=== PATIENT | male | born 1940 | race Caucasian/White ===

== ENCOUNTER → 2017-10-14 09:24 | Outpatient (CLI) | payer MEDICARE, SELFPAY ==
[2017-10-14 10:55] LABS: ALB/GLOB Ratio 0.8 RATIO (0.9-2.4); AST(SGOT) 28 U/L (15-37); Alanine Aminotransfer ALT/SGPT 25 U/L (16-61); Albumin, Serum 3.3 g/dL (3.2-5.0); Alkaline Phosphatase 102 U/L (45-117); Anion Gap 8 (5-15); BUN 17 mg/dL (7-18); BUN/Creat Ratio 15.6 RATIO (10-20); Calcium,Total 8.6 mg/dL (8.5-10.1); Chloride 104 mmol/L (98-107); Cholesterol 156 mg/dL (200); Creatinine, Serum 1.09 mg/dL (0.70-1.30); EST Glomerular Filtration Rate 70 mL/min (>60); Est Glom Filt Rate - Afr Amer 85 mL/min (>60); Globulin 4.2 g/dL (2.2-4.2); Glucose 86 mg/dL (74-106); High Density Lipoprotein 39 mg/dL; PSA,Total - Annual Screen < 0.01 ng/mL (0.00-4.00); Potassium 4.2 mmol/L (3.5-5.1); Protein, Total 7.5 g/dL (6.4-8.2); Sodium Level 138 mmol/L (136-145); Triglycerides 93 mg/dL; Very Low Density Lipoprotein 19 mg/dL (5-40)
== END ==
PROVIDERS: Family Provider Family Medicine; PCP Family Medicine; Visit Provider Family Medicine
DX: Z00.00 Encounter for general adult medical examination without abnormal findings (principal); Z85.46 Personal history of malignant neoplasm of prostate
CPT/HCPCS: 36415; 80053; 80061; 84153; G0103

== ENCOUNTER → 2017-10-22 07:12 | Outpatient (CLI) | payer MEDICARE, SELFPAY ==
--- NOTE | 2017-10-22 07:14 | CT_ITS ---
STUDY: CT MAXILLOFACIAL SINUSES REASON FOR EXAM: Male, 76 years old. Chronic sinusitis. RADIATION DOSAGE (If Supplied By Facility): CTDIvol = ( 33.06 ) mGy, DLP = ( 792.53 ) mGycm TECHNIQUE: The patient was scanned in a multi detector CT scanner. High resolution axial imaging was performed without the administration of intravenous contrast material. Sagittal and coronal images were reconstructed. Individualized dose optimization techniques were used for this CT. COMPARISON: None. FINDINGS: FRONTAL SINUSES: Minimal mucosal thickening of the right frontal sinus. ETHMOIDAL SINUSES: Partial opacification of the ethmoid sinuses bilaterally. MAXILLARY SINUSES: There is opacification of the right maxillary sinus. Mucosal thickening of the left maxillary sinus. SPHENOIDAL SINUSES: Partial opacification of the sphenoid sinuses. There is compromise of the right ostium medial cartilage due to mucosal hypertrophy at that site. There is also evidence of soft tissue density in the right nasal fossa. Normal bilateral middle turbinates. There is hypertrophy of the left inferior nasal turbinate. Normal midline nasal septum. There is patency of the bilateral nasal airways. The visualized osseous structures are normal. The visualized bilateral orbital contents are normal. CT/Sinus/Facial Bone IMPRESSION: Sinusitis as described. Electronically Signed: Don Romero MD at 14:47 EST Tel [phone], Service support ,
== END ==
PROVIDERS: Family Provider Family Medicine; PCP Family Medicine; Visit Provider Otolaryngology
DX: J32.9 Chronic sinusitis, unspecified (principal)
CPT/HCPCS: 70486

== ENCOUNTER 2017-11-09 05:44 | Day surgery (SDC) | payer MEDICARE, SELFPAY ==
[2017-11-09 06:09] VITALS: BP 119/72; PULSE 66; RESP 16; O2SAT 100
--- NOTE | 2017-11-09 06:19 | PCM.HP.STD ---
Problem List (1) Personal history of colonic polyps Status: Acute History of Present Illness Date of Admission: 11/09/17 The patient is a 76 year old M personal history of colon polyps. His most recent colonoscopy was 9 years ago. He denies any significant chronic health problems other than hypertension. He denies bright red blood per rectum or melena. No abdominal pain. No unexpected weight loss. He denies any previous history of deep venous thrombosis. He states that there is no family history of colon cancer. He presents via our open access program. Past Medical History Allergies No Known Allergies Allergy (Verified 11/05/17 16:07) Home Medications: Ambulatory Orders Medication Instructions Recorded Lisinopril [Zestril] 10 mg PO DAILY 11/05/17 Omeprazole [Prilosec] 20 mg PO PRN PRN 11/05/17 Smoking Status: Never smoker Review of Systems Constitutional: Denies: Anorexia Eyes: Denies: Blurred vision HEENT: Denies: Difficulty Hearing Cardiovascular: Denies: Chest Pain Respiratory: Denies: Cough Gastrointestinal: Denies: Abdominal Pain Genitourinary: Denies: Dysuria Skin: Denies: Dryness Neurological: Denies: Balance problems Psychiatric: Denies: Anxiety Endocrine: Denies: Change in Body Habitus VTE Information - Inpt Only VTE Present on Admission: No Patient Problems: Active and Suspected Problems Personal history of colonic polyps (Acute) - Physical Exam General: Alert, Oriented x3, Cooperative, No apparent distress HEENT: Atraumatic Oral: Moist Mucosa Neck: Supple Lungs: Clear to auscultation Cardiovascular: Regular rate, Regular Rhythm Abdomen: Bowel Sounds Present Extremities: No clubbing Musculoskeletal: No Tenderness to Palpation of Joints or Extremities Lymphatic: No Cervical, Supraclavicular, or Inguinal Adenopathy Neurological: Cranial nerves II-XII grossly intact Psych/Mental Status: Normal Affect Vital Signs Pulse Resp BP Pulse Ox 66 16 119/72 100 11/09/17 06:09 11/09/17 06:09 11/09/17 06:09 11/09/17 06:09 Oxygen Delivery Method Room Air Assessment/Plan Active and Suspected Problems Personal history of colonic polyps (Acute) Patient has a previous history of a colon polyp 9 years ago on colonoscopy. That is his only previous colonoscopy. He currently does not have any acute symptoms. I proposed for him a colonoscopy with possible biopsy or polypectomy is indicated. I have discussed the technique, benefits, risks, alternatives. He has had an opportunity to ask and have questions answered. We will proceed at his discretion. Robel Vega M.D., F.A.C.S.
--- NOTE | 2017-11-09 06:45 | POL_PTH ---
PATIENT: NOE MIRELES LOC: EN U#:[id number] AGE/SX: 76/M ROOM: RE11/09/[address]: Dr. Robel Vega MD : 1940 BED: DIS: 11/09/2017 SPEC #: [id number] RECD: 11/09/17 13:09 STATUS: EMANUEL GIRISH #: [id number] NATALEE: 11/09/17 06:[address]: Robel Vega DEPT: SURGICAL PATHOLOGY RECD BY: Irwin Sousa ENTERED: 11/09/17 14:26 SP TYPE: Polyp OTHR DR: Dr. Mike Sevilla, DO Tissues: Rectum, NOS Procedures: Surgery Specimen Level IV HEADER OPERATION: Colonoscopy with biopsy PRE-OP DIAGNOSIS: Screening TISSUE SUBMITTED: Rectal polyp biopsy MICROSCOPIC DIAGNOSIS Rectal polyp, biopsy: Hyperplastic polyp. SJ:preston 11/10/17 MICROSCOPIC DESCRIPTION Slides are reviewed. GROSS DESCRIPTION Received in fixative is one container labeled with the patient's name and designated rectal polyp biopsy. The specimen consists of one irregular fragment of light locke soft tissue that measures 0.3 x 0.3 x 0.1 cm. The specimen is totally submitted in one cassette. / SJ:preston 11/09/17 TC:1 CPT: 43354
--- NOTE | 2017-11-09 06:53 | PCM.OPRPT ---
Problem List (1) Personal history of colonic polyps Status: Acute Report of Operation Date of Procedure: 11/09/17 Pre-Operative Diagnosis: Personal history of colon polyps Post-Operative Diagnosis: Diminutive sessile polyp in the rectum. Pancolonic diverticulosis Surgery/Procedure Performed:: Colonoscopy with cold forcep rectal polypectomy Description of Surgical Findings:: Timeout and informed consent was obtained. 76-year-old gentleman was taken to the endoscopy suite and placed in a left lateral decubitus position throughout the procedure he received a total of 75 mg Demerol and 3 mg of Versed is intravenous sedation. Digital rectal exam demonstrated some mild hemorrhoidal changes 2+ smooth prostate no masses flexible colonoscope inserted the rectum advanced was somewhat tortuous sigmoid colon extensively involved with diverticulosis the scope was then readily advanced to the transverse colon with some transabdominal pressure was advanced to the cecum. Bowel prep was very good. The scope was carefully withdrawn from the cecum ascending colon transverse colon and descending colon. Throughout the colon scattered diverticulosis was identified but there was extensive diverticulosis of the descending and sigmoid colon. In the rectum at about 8 cm there was a small 6 mm diameter sessile polyp. Photographs obtained and a cold forcep was used to sample and eradicate this area. The scope was retroflexed and hemorrhoidal no active bleeding. Excess fluid and air was aspirated free the procedure was completed with the patient tolerating it well. Impression Sessile benign-appearing polyp of the rectum. Extensive descending and sigmoid diverticulosis Previous colonoscopy was 9 years ago. Pending pathology next colonoscopy may be in 5 years. Cc: Dr. Dr. Sevilla Medications were given at 0636. Scope inserted 0638. Cecum reached at 0642.57. Procedure completed at 0651.01 Robel Vega M.D., F.A.C.S. Type of Anesthesia:: IV Sedation
[2017-11-09 06:58] VITALS: BP 103/67; BP 119/72; PULSE 57; RESP 18; TEMP 35.7; O2SAT 95
[2017-11-09 07:00] VITALS: BP 108/68; BP 119/72; PULSE 59; RESP 18; O2SAT 93
[2017-11-09 07:05] VITALS: BP 119/72; BP 93/62; PULSE 50; RESP 18; O2SAT 93
[2017-11-09 07:10] VITALS: BP 111/64; BP 119/72; PULSE 50; RESP 18; TEMP 35.9; O2SAT 93
[2017-11-09 07:34] VITALS: BP 119/72
== END 2017-11-09 08:05 | disposition home or self-care (01) ==
LOC: EN 05:44 → AC 05:45
PROVIDERS: Family Provider Family Medicine; PCP Family Medicine; Visit Provider Surgery
PROC: 0DJD8ZZ Inspection of Lower Intestinal Tract, Via Natural or Artificial Opening Endoscopic (ICD-10-PCS; CPT 45378; principal; 2017-11-09 06:25)
DX: K62.1 Rectal polyp (principal); K57.30 Diverticulosis of large intestine without perforation or abscess without bleeding; K64.9 Unspecified hemorrhoids; Z86.010 Personal history of colon polyps; I10 Essential (primary) hypertension; Z79.899 Other long term (current) drug therapy
CPT/HCPCS: 45380; 88305; J7120

== ENCOUNTER → 2018-02-15 12:12 | Outpatient (CLI) | payer MEDICARE, SELFPAY ==
--- NOTE | 2018-02-15 12:16 | RAD_ITS ---
STUDY: X-RAY - LEFT SHOULDER REASON FOR EXAM: Male, 77 years old. Pain TECHNIQUE: 4 view(s) of the shoulder. COMPARISON: None. FINDINGS: Normal glenohumeral articulation. There is degenerative arthrosis of the acromioclavicular joint without inferior osseous spur formation. Normal acromion. Normal humeral head and visualized proximal humerus. The soft tissue structures are unremarkable. Normal visualized pulmonary apex. RAD/Shoulder min 2 Views IMPRESSION: There is mild acromioclavicular joint degenerative arthrosis. Electronically Signed: Pushpa Lilly MD at 13:24 EDT , Service support ,
== END ==
PROVIDERS: Family Provider Family Medicine; PCP Family Medicine; Visit Provider Family Medicine
DX: M25.512 Pain in left shoulder (principal)
CPT/HCPCS: 73030

== ENCOUNTER 2018-09-09 12:51 | Observation (INO) | payer MEDICARE, SELFPAY ==
[2018-09-09] VITALS (14 sets, daily range): BP systolic 126–153; BP diastolic 75–92; PULSE 45–76; RESP 12–20; TEMP 36.4–36.8; O2SAT 95–99; BMI 25.8; BMI 31.6; BMI 28.5
--- NOTE | 2018-09-09 13:03 | EKG12_ITS ---
Test Reason : NEURO Blood Pressure : / mmHG Vent. Rate : 063 BPM Atrial Rate : 063 BPM P-R Int : 200 ms QRS Dur : 082 ms QT Int : 396 ms P-R-T Axes : -02 -01 005 degrees QTc Int : 405 ms Sinus rhythm with Premature atrial complexes with Aberrant conduction Minimal voltage criteria for LVH, may be normal variant Inferior infarct , age undetermined Abnormal ECG Confirmed by ROLF GIORDANO, KINGSLEY ([id number]), film editor AUTUMN GONSALES ([id number]) on 09/13/2018 5:02:39 PM Referred By: Magdy Fang Confirmed By:KINGSLEY BANSAL MD
--- NOTE | 2018-09-09 13:03 | CT_ITS ---
STUDY: CT BRAIN WITHOUT CONTRAST REASON FOR EXAM: Male, 77 years old. Left-sided facial droop RADIATION DOSAGE (If Supplied By Facility): CTDIvol = ( 44.99 ) mGy, DLP = ( 846.73 ) mGycm TECHNIQUE: Transaxial CT imaging of the brain was performed without administration of intravenous contrast material. Individualized dose optimization techniques were used for this CT. COMPARISON: None. FINDINGS: Normal soft tissue structures. Normal calvarium. There is mild cerebral atrophy with widening of the extra-axial spaces and ventricular dilatation. There are areas of decreased attenuation within the white matter tracts of the supratentorial brain, consistent with microvascular disease changes. Normal basal ganglia and thalami. Normal brainstem. There is mild cerebellar atrophy. There is no intracranial hemorrhage. There are no findings of an acute ischemic infarction. There is mucoperiosteal inflammatory disease of the paranasal sinuses consistent with mild chronic sinusitis. CT/Brain/Head without Contrast IMPRESSION: Chronic involutional changes of the brain. Electronically Signed: Sylvester Rey DO at 14:19 EST Tel , Service support ,
[2018-09-09 13:28] LABS: Absolute Lymphocyte Count 1.58 X10^3/ul (0.83-4.51); Basophil# 0.03 X10^3/uL; Basophil% 0.4 % (0-1); Eosinophils% 4.4 % (0-5); Hematocrit 43.4 % (40-54); Hemoglobin 14.5 g/dl (13.0-16.5); Lymphocyte # 1.58 X10^3/ul (4.0); Mean Corp Hgb Conc 33.4 g/gl (32-36); Mean Corpuscular Hgb 29.1 pg (27.0-32.0); Mean Platelet Vol. 10.7 fl (6.2-12.0); Monocyte# 0.94 X10^3/uL; Monocyte% 13.7 % (0-10); Neutrophil % 58.4 % (47-70); Platelet Count 187 K/mm3 (150-450); RBC Distribution Width CV 14.3 % (11.6-14.6); RBC Distribution Width SD 45.5 fl (35.1-43.9); Red Blood Count 4.99 M/mm3 (4.6-6.2); White Blood Count 6.9 K/mm3 (4.4-11.0)
[2018-09-09 13:32] LABS: POSITIVE COUNT NO; POSITIVE DIFFERENTIAL NO; POSITIVE MORPHOLOGY NO
[2018-09-09 13:33] LABS: International Normalized Ratio 1.1; Prothrombin Time (Protime)PT. 13.7 SECONDS (11.7-14.9)
[2018-09-09 13:34] LABS: Partial Thromboplast Time 29.3 Seconds (24.1-36.2)
[2018-09-09 13:36] LABS: Anion Gap 7 (5-15); BUN 22 mg/dL (7-18); BUN/Creat Ratio 18.5 RATIO (10-20); Chloride 108 mmol/L (98-107); Creatinine, Serum 1.19 mg/dL (0.70-1.30); EST Glomerular Filtration Rate 63 mL/min (>60); Est Glom Filt Rate - Afr Amer 77 mL/min (>60); Estimated Creatinine Clearance 53.64 ml/min; Glucose 94 mg/dL (74-106); Potassium 4.8 mmol/L (3.5-5.1); Sodium Level 142 mmol/L (136-145)
--- NOTE | 2018-09-09 15:41 | ED.VISSUMM ---
- ER Visit Summary Date of Service: 09/09/18 Chief Complaint: Facial droop History of Present Illness: The patient is a 77 M who was at his PCPs office for routine visit and was told that he has facial droop and he was sent to the emergency department. No weakness. No sensory deficits no speech or vision deficits. Physical Examination: Not appear in acute distress. Moist mucous membranes, no obvious facial deformity No C-spine tenderness supple neck. Regular rate and rhythm without any obvious murmurs Clear lungs bilaterally speaking in full sentences without any obvious respiratory distress Abdomen soft and nontender no guarding or rebound Moves all extremities without any difficulty or pain. Skin does not show any obvious rashes or lesions, no trauma. Alert oriented ?3. He has very subtle flattening of the left nasal labial fold, I do not see any forehead involvement. NIG stroke scale is 1 because of this otherwise no other focal deficit. Emergency Department Course and Treatment: She has unremarkable workup, I discussed the case with neurology who recommended admission to the hospital. I will admit for observation under telemetry for 24 hours. Patient is stable. Impression: [] TIA This note was generated with [employer] dictation software. It may contain incorrect words, spelling, and punctuation that were not noted in review of the chart prior to signing ED Disposition - Plan for ED Patient: Chief Complaint: Neuro S/Sx Referrals: Mike Sevilla DO [Primary Care Provider] -
[2018-09-09 15:45] LABS: Bedside Glucose 85 mg/dL (70-110)
--- NOTE | 2018-09-09 17:09 | PCM.HP.STD ---
Problem List (1) CVA (cerebral vascular accident) Status: Acute Qualifiers: CVA mechanism: unspecified Qualified Code(s): I63.9 - Cerebral infarction, unspecified History of Present Illness Date of Admission: 09/09/18 Chief Complaint: left facial droop The patient is a 77 year old M presents with left facial droop and slurred speech. Symptoms may began days ago where but until he followed up with his doctor and noted that he was slurring his words and had a left facial droop. Patient was sent to the emergency room. In the emergency room patient was noted to have a left facial droop as well as some slurred speech but otherwise his neurologic exam was unremarkable. Patient underwent initial head CT that was negative. Patient otherwise feels fine, he denies any is, no expressive nor receptive aphasia. He has never had a stroke before. [] Past Medical History Past Medical History (Chronic Problems): Chronic Problems (Last Reviewed 09/09/18 @ 11:10 by Estrellita Rojas) Prostate cancer (Chronic) Vision problems (Chronic) GERD (gastroesophageal reflux disease) (Chronic) High blood pressure (Chronic) Cataracts, bilateral (Chronic) Arthritis (Chronic) Seasonal allergies (Chronic) Medical History: Medical History (Last Reviewed 09/09/18 @ 17:10 by Magdy Fang DO) Prostate cancer (Chronic) C61 Vision problems (Chronic) H54.7 GERD (gastroesophageal reflux disease) (Chronic) K21.9 High blood pressure (Chronic) I10 Cataracts, bilateral (Chronic) H26.9 Arthritis (Chronic) M19.90 Seasonal allergies (Chronic) J30.2 Allergies latex Allergy (Intermediate, Verified 09/09/18 12:58) Bumps Home Medications: Ambulatory Orders Medication Instructions Recorded Omeprazole [Prilosec] 20 mg PO DAILY PRN PRN 11/05/17 Lisinopril [Zestril] 10 mg PO DAILY 09/09/18 Surgical History: Surgical History (Last Reviewed 09/09/18 @ 17:10 by Magdy Fang DO) History of cataract extraction Z98.49 10/15, 04/15, 10/17, 11/14 History of hand surgery Z98.890 History of prostatectomy Z90.79 6/ Smoking Status: Never smoker Tobacco Use: Non-smoker Alcohol: None Drugs: None - *Family History Maternal Family History: Family History (Last Reviewed 09/09/18 @ 17:10 by Magdy Fang DO) Brother Arthritis Brother Arthritis Heart disease CVA (cerebral vascular accident) Mother Myocardial infarction Heart disease CVA (cerebral vascular accident) Father Kidney disease Review of Systems Constitutional: Denies: Anorexia, Chills, Fever Eyes: Denies: Blurred vision, Double vision HEENT: Denies: Head Aches, Sinus Congestion, Sinus Drainage Cardiovascular: Denies: Chest Pain, Palpitations Respiratory: Denies: Cough, Shortness of breath at rest, Sputum production Gastrointestinal: Denies: Abdominal Pain, Nausea, Vomiting Genitourinary: Denies: Dysuria Musculoskeletal: Denies: Joint Pain, Joint Tenderness Skin: Denies: Dryness, Jaundice Neurological: Denies: Numbness, Tingling, Focal weakness Psychiatric: Denies: Anxiety, Depression Hematologic/ Lymphatic: Denies: Easy Bruising, Easy Bleeding, Hx of blood clot Comment: A 10 point review of systems were negative except as mentioned in the history of present illness and the other review of systems. VTE Information - Inpt Only VTE Present on Admission: No VTE Pharm Prophylaxis ordered?: Yes Patient Problems: Active and Suspected Problems (Last Reviewed 09/09/18 @ 11:10 by Estrellita Rojas) CVA (cerebral vascular accident) (Acute) - Physical Exam General: Alert, Cooperative, No apparent distress, Well developed, Well nourished HEENT: Atraumatic, PERRLA, EOMI, Normocephalic, - - Left facial droop Oral: Moist Mucosa, No Gingival or Mucosal Lesions/ Ulcerations Neck: No Nodes, Thyroid Normal Size and Texture Lungs: Clear to auscultation, Normal air movement, No rhonchi, No wheeze Cardiovascular: Regular rate, Regular Rhythm, Normal S1, Normal S2, No murmurs Abdomen: Bowel Sounds Present, Soft, Non Tender, Non-Distended, No Hepato-splenomegaly Extremities: No clubbing, No edema, No Calf Tenderness Skin: No rashes, No breakdown Musculoskeletal: No Tenderness to Palpation of Joints or Extremities, No Muscle Wasting Neurological: Cranial nerves II-XII grossly intact, Neuro grossly intact, Motor Exam 5/5 strength throughout, Facial Droop - left, Sensory exam intact to light touch and pain Psych/Mental Status: Normal Affect, Appropriate Vital Signs Temp Pulse Resp BP Pulse Ox 36.4 C L 53 L 16 143/90 H 98 09/09/18 12:52 09/09/18 16:30 09/09/18 16:30 09/09/18 16:30 09/09/18 16:30 Oxygen Flow Rate (L/min) 2 Oxygen Delivery Method Nasal Cannula Weight: 97 kg Body Mass Index (BMI) 31.6 Finger Stick Blood Glucose 85 Laboratory Tests Past 24 Hrs 09/09/18 09/09/18 09/09/18 13:15 13:15 13:15 WBC 6.9 RBC 4.99 Hgb 14.5 Hct 43.4 MCV 87.0 MCH 29.1 MCHC 33.4 RDW 14.3 RDW Differential 45.5 H Plt Count 187 MPV 10.7 Immature Gran % (Auto) 0.100 Neut % (Auto) 58.4 Lymph % (Auto) 23.0 Spencer % (Auto) 13.7 H Eos % (Auto) 4.4 Baso % (Auto) 0.4 Absolute Neuts (auto) 4.0 Absolute Lymphs (auto) 1.58 Total Counted Not Reportable PT 13.7 INR 1.1 APTT 29.3 Sodium 142 Potassium 4.8 Chloride 108 H Carbon Dioxide 27.0 Anion Gap 7 BUN 22 H Creatinine 1.19 Estim Creat Clear Calc 53.64 Est GFR (MDRD) Af Amer 77 Est GFR (MDRD) Non-Af 63 BUN/Creatinine Ratio 18.5 Glucose 94 Calcium 9.0 Troponin I < 0.015 POC Glucose 09/09/18 13:11 POC Glucose 85 Clinical Impression(s) from Imaging Studies Brain CT 09/09/18 13:03 IMPRESSION: Chronic involutional changes of the brain. Electronically Signed: Sylvester Rey DO at 14:19 EST Tel , Service support , Assessment/Plan All Active Problems (Last Reviewed 09/09/18 @ 11:10 by Estrellita Rojas) CVA (cerebral vascular accident) (Acute) Personal history of colonic polyps (Acute) 1. Acute stroke may be subacute as time of onset is unknown at this time Patient has no other deficits other than some slurred speech and a left facial droop. There is no forehead involvement. Ago remainder of a stroke workup, including MRI of the brain, MRA of the head and neck and echocardiogram Start aspirin Consult neurology, physical therapy, speech therapy and occupational therapy 2. DVT prophylaxis with Lovenox Code Visit OBSV E&M: 41204 Initial observation care L3
--- NOTE | 2018-09-09 17:11 | ECHOD_ITS ---
Reason For Study: TIA/CVA Procedure This was a 2D Doppler, Color Flow transthoracic echocardiogram. The exam was of adequate technical quality. Exam performed portable in patient room. Left Ventricle Normal LV size. Left ventricular systolic function is normal. The estimated ejection fraction is 60 %. No evidence for diastolic dysfunction. No regional wall motion abnormalities noted. Right Ventricle Normal RV size. Normal systolic function. Atria Normal left atrium. Normal right atrium. Very faintly positive agitated saline contrast study for a right to left interatrial shunt c/w a small PFO vs. ASD. Mitral Valve There is no mitral annular calcification. Mild mitral valve prolapse. Mild-Moderate (1-2+) mitral valve insufficiency. Tricuspid Valve Normal tricuspid valve. Trivial tricuspid valve insufficiency. Right ventricular systolic pressure estimated to be 30 mmHg. Aortic Valve Trisinus/trileaflet aortic valve. Normal aortic valve. Trivial eccentric aortic valve insufficiency. Pulmonic Valve The pulmonic valve is not well visualized. Trivial pulmonic valve insufficiency. Great Vessels Normal sized aortic root. Pericardium/Pleural No pericardial effusion. Medication Performed a rapid injection of agitated mix of 9 cc saline and 1cc air to assess for atrial septal defect. MMode/2D Measurements & Calculations LVIDd: 5.2 cm IVSd: 0.80 cm Ao root diam: 3.2 cm LVIDs: 2.9 cm LVPWd: 0.97 cm RVDd: 4.3 cm FS: 44.4 % LAV(MOD-bp): 46.2 ml LVAd ap4: 28.8 cm2 SV(MOD-sp4): 56.4 ml LAV(MOD-bp) Indexed: 21.8 ml/m2 EDV(MOD-sp4): 85.0 ml LAV(MOD-sp2): 43.0 ml EDV(sp4-el): 92.0 ml LAV(MOD-sp4): 45.3 ml LVAs ap4: 15.4 cm2 ESV(MOD-sp4): 28.6 ml ESV(sp4-el): 30.3 ml EF(MOD-sp4): 66.3 % EF(sp4-el): 67.0 % SV(sp4-el): 61.7 ml LA A4 area: 18.7 cm2 LA dimension(2D): 4.0 cm RA A4 area: 10.0 cm2 Doppler Measurements & Calculations MV E max phillip: 71.0 cm/sec Lat Peak E' Phillip: 10.5 cm/sec Med Peak E' Phlilip: 5.3 cm/sec MV A max phillip: 88.7 cm/sec E/E' lat: 6.8 E/E' med: 13.4 MV E/A: 0.80 Ao V2 max: 135.1 cm/sec LV V1 max: 103.8 cm/sec PA V2 max: 98.2 cm/sec Ao max P.3 mmHg LV V1 max P.3 mmHg Ao V2 mean: 101.1 cm/sec Ao mean P.4 mmHg Ao V2 VTI: 33.0 cm PI end-d phillip: 90.5 cm/sec TR max phillip: 260.5 cm/sec TR max P.1 mmHg Interpretation Summary Left ventricular systolic function is normal. The estimated ejection fraction is 60 %. Mild mitral valve prolapse. Mild-Moderate (1-2+) mitral valve insufficiency. Trivial tricuspid valve insufficiency. Trivial eccentric aortic valve insufficiency. Trivial pulmonic valve insufficiency. Right ventricular systolic pressure estimated to be 30 mmHg. No evidence for diastolic dysfunction. Very faintly positive agitated saline contrast study for a right to left interatrial shunt c/w a small PFO vs. ASD. Ordering Physician: Magdy Fang Referring Physician: Mike Sevilla Performed By: Conchita Givens, ADELINE, RVT
--- NOTE | 2018-09-09 17:11 | MRI_ITS ---
STUDY: MRI BRAIN WITHOUT CONTRAST REASON FOR EXAM: Male, 77 years old. Left facial droop. TECHNIQUE: Standardized multiplanar fat and water weighted pulse sequences were obtained. COMPARISON: None. FINDINGS: Normal size of the ventricles and extra-axial spaces for the patient's age. There are multiple white matter hyperintensities, distributed throughout the deep white matter tracts of the cerebral hemispheres, consistent with moderate chronic white matter ischemic changes. Normal bilateral basal ganglia. Normal thalami. There is no extra-axial fluid accumulation. Normal flow voids within the major intracranial circulation suggesting patency by spin echo criteria. Normal sella turcica, pituitary gland, infundibular stalk, optic chiasm and hypothalamus. Normal tectal plate and pineal gland. Normal midbrain, delmi and medulla. Normal cerebellum. Normal basal cisterns. Normal bilateral temporal bones. Normal bilateral internal auditory canals. No demonstrated orbital abnormality, within the constraints of a routine brain study. Normal visualized paranasal sinuses. Normal calvarium and skull base. Normal visualized soft tissue structures. Normal visualized upper cervical spine. MRI/Brain without Contrast IMPRESSION: Involutional changes of the brain, as described above. Electronically Signed: Jessica Mcdonald MD at 20:28 EST Tel , Service support ,
--- NOTE | 2018-09-09 17:11 | MRI_ITS ---
STUDY: MRA NECK WITH AND WITHOUT CONTRAST REASON FOR EXAM: Male, 77 years old. LEFT facial droop and slurred speech, symptoms noticed this morning. History of Prostate CA TECHNIQUE: 3-D scwf-vy-[id number] (TOF) imaging was performed in an 1.5 T MRI scanner. 9 ml of Gadavist was administered for the contrast enhanced images. COMPARISON: None. FINDINGS: RIGHT CAROTID ARTERIES: There is atherosclerotic tortuous elongation of the right common carotid artery. There is mild atherosclerotic plaque formation with minimal narrowing of the right carotid bulb. Normal origin of the right internal carotid (ICA) artery without a hemodynamically significant stenosis. Normal visualized cervical portion of the right internal carotid artery. Normal origin of the right external carotid artery (ECA). LEFT CAROTID ARTERIES: There is atherosclerotic tortuous elongation of the left common carotid artery. There is mild atherosclerotic plaque formation with minimal narrowing of the left carotid bulb. Normal origin of the left internal carotid (ICA) artery without a hemodynamically significant stenosis. Normal visualized cervical portion of the left internal carotid artery. Normal origin of the left external carotid artery (ECA). VERTEBRAL ARTERIES: There is a dominant left vertebral artery. 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 Electronically Signed: Jessica Mcdonald MD at 0:04 EST Tel , Service support ,
--- NOTE | 2018-09-09 17:11 | MRI_ITS ---
STUDY: MRA OF THE HEAD WITHOUT CONTRAST REASON FOR EXAM: Male, 77 years old. Left facial droop TECHNIQUE: 3-D olda-wf-pymoxk (TOF) imaging was performed with MIPs. The study was performed unenhanced. COMPARISON: None. FINDINGS: Normal bilateral petrous carotid arteries. Normal right cavernous carotid artery with a normal supraclinoid bifurcation. Normal left cavernous carotid artery with a normal supraclinoid bifurcation. Normal right A1 segments of the anterior cerebral artery. Normal left A1 segments of the anterior cerebral artery. Normal intact anterior communicating artery (ACOM). Normal bilateral A2 segments of the anterior cerebral arteries. 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 Normal right M2 segments of the middle cerebral arteries, with a normal M1 bifurcation. Normal left M1 and M2 segments of the middle cerebral arteries, with a normal M1 bifurcation. Normal right posterior communicating artery (PCOM). There is non-visualization of the left posterior communicating artery (PCOM). Normal bilateral vertebral arteries. Normal basilar artery with a normal basilar bifurcation. The visualized bilateral superior cerebellar (SCA) arteries are normal. Normal bilateral P1, P2 and visualized P3 segments of the posterior cerebral arteries. There is no demonstrated aneurysm of the [place]. There is no major vessel occlusion or hemodynamically significant stenosis. There is no demonstrated abnormality of the visualized brain. 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 Electronically Signed: Jessica Mcdonald MD at 23:59 EST Tel , Service support ,
[2018-09-09] MEDS: Aspirin 325 MG Tablet PO (20:58)
--- NOTE | 2018-09-09 20:58 | NURSING ---
Patient was educated on Lovenox and still refused medication.
[2018-09-10] VITALS (8 sets, daily range): BP systolic 118–156; BP diastolic 74–82; PULSE 52–80; RESP 16–17; TEMP 36.4–36.8; O2SAT 94–98; BMI 28.5
[2018-09-10 06:58] LABS: Cholesterol 167 mg/dL (200); High Density Lipoprotein 41 mg/dL; Triglycerides 93 mg/dL; Very Low Density Lipoprotein 19 mg/dL (5-40)
[2018-09-10] MEDS: Lisinopril 10 MG Tablet PO (10:11)
[2018-09-10] MEDS: Aspirin 81 MG TAB.CHEW PO (10:11)
--- NOTE | 2018-09-10 14:08 | PCM.PROGNOTE ---
Subjective: Chief complaint: Follow-up after admission for left facial droop with concern for TIA versus acute stroke. Patient seen and examined. No acute events overnight. He was sent to ER for evaluation yesterday from his PCPs office because he was informed that he has left facial droop. Patient himself did not notice that he has any facial droop. He denied blurred vision, slurred speech, numbness or tingling. He denies focal arm or leg weakness. No history of stroke. He denies chest pain or shortness of breath. His blood pressure slightly elevated, other vital signs are stable. - Physical Exam General: Alert, Oriented x3, Cooperative, No apparent distress HEENT: Atraumatic, PERRLA, EOMI, Normocephalic Oral: Moist Mucosa, No Gingival or Mucosal Lesions/ Ulcerations Neck: Supple, No JVD, Negative Carotid Bruits, Trachea Midline, Thyroid Normal Size and Texture Lungs: Clear to auscultation, Normal air movement, No rhonchi, No wheeze, No rales Cardiovascular: Regular rate, Regular Rhythm, Normal S1, Normal S2, PMI Normal Abdomen: Bowel Sounds Present, Soft, Non Tender, Non-Distended, No Hepato-splenomegaly Extremities: No clubbing, No cyanosis, No edema Skin: No rashes, No breakdown Lymphatic: No Cervical, Supraclavicular, or Inguinal Adenopathy Neurological: Cranial nerves II-XII grossly intact, Motor Exam 5/5 strength throughout, Facial Droop Psych/Mental Status: Normal Affect, Appropriate, Alert and oriented to time, place, person, mood and affect Vital Signs Temp Pulse Resp BP Pulse Ox 98.2 F 80 16 156/75 H 96 09/10/18 10:08 09/10/18 11:01 09/10/18 10:08 09/10/18 10:08 09/10/18 10:08 Oxygen Flow Rate (L/min) 2 Oxygen Delivery Method Room Air Weight: 193 lb 1.999 oz Body Mass Index (BMI) 28.5 Finger Stick Blood Glucose 85 Intake and Output for Last 24 Hours 09/08/18 09/09/18 09/10/18 23:59 23:59 23:59 Intake Total 240 / 240 240 / 240 Balance 240 / 240 240 / 240 Laboratory Tests Past 24 Hrs 01/11/19 01/12/19 13:15 05:48 PT 13.7 INR 1.1 APTT 29.3 Triglycerides 93 Cholesterol 167 LDL Cholesterol 107 VLDL Cholesterol 19 HDL Cholesterol 41 POC Glucose 09/09/18 13:11 POC Glucose 85 Clinical Impression(s) from Imaging Studies Brain CT 09/09/18 13:03 IMPRESSION: Chronic involutional changes of the brain. Electronically Signed: Sylvester Rey DO at 14:19 EST Tel , Service support , Brain MRI 09/09/18 17:11 IMPRESSION: Involutional changes of the brain, as described above. 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 Electronically Signed: Jessica Mcdonald MD at 0:04 EST Tel , Service support , Medical Necessity - Tobacco Use Smoking Status: Never smoker Tobacco Use: Non-smoker Assessment/Plan This is a 77 years old male patient was sent to ED because he was found to have left facial droop when he went to see his PCP for a routine follow-up visit and he was admitted for evaluation for possible TIA versus acute stroke. #1 left facial droop: TIA versus acute stroke. He has no other symptoms or findings consistent with acute stroke. Started on aspirin, will start Lipitor. CT scan brain showed no acute findings. MRI brain showed no acute infarction or hemorrhage. MRA of the head revealed severe stenosis at the lateral aspect of the M1 segment of the right middle cerebral artery. MRA of the neck revealed occlusion of the right vertebral artery with reconstitution by collaterals. Apart from minimal left-sided facial droop, no other focal deficit on physical exam. EKG revealed normal sinus rhythm with PACs, no acute ischemic changes or cardiac arrhythmias. Routine blood work was unremarkable. Troponin is negative. Lipid profile reviewed. 2D echocardiogram performed, awaiting the report. Neurology consulted, awaiting recommendations. #2 right MCA M1 segment severe stenosis: This is an incidental finding on MRA of the head. Not sure if this is related to his presenting symptoms. Patient denies any symptoms of dizziness, lightheadedness, no focal weakness. Awaiting neurology recommendations. #3 hypertension: Blood pressure slightly raised, continue lisinopril. #4 GERD: Continue PPI. #5 history of prostate cancer: Stable in remission. #6 DVT prophylaxis: Subcu Lovenox. This note was generated with [employer] dictation software. It may contain incorrect words, spelling, and punctuation that were not noted in checking the note before signing. Code Visit OBSV E&M: 63959 Subsequent observation care L2
--- NOTE | 2018-09-10 14:12 | PN_ITS ---
Subjective: Chief complaint: Follow-up after admission for left facial droop with concern for TIA versus acute stroke. Patient seen and examined. No acute events overnight. He was sent to ER for evaluation yesterday from his PCPs office because he was informed that he has left facial droop. Patient himself did not notice that he has any facial droop. He denied blurred vision, slurred speech, numbness or tingling. He denies focal arm or leg weakness. No history of stroke. He denies chest pain or shortness of breath. His blood pressure slightly elevated, other vital signs are stable. - Physical Exam General: Alert, Oriented x3, Cooperative, No apparent distress HEENT: Atraumatic, PERRLA, EOMI, Normocephalic Oral: Moist Mucosa, No Gingival or Mucosal Lesions/ Ulcerations Neck: Supple, No JVD, Negative Carotid Bruits, Trachea Midline, Thyroid Normal Size and Texture Lungs: Clear to auscultation, Normal air movement, No rhonchi, No wheeze, No rales Cardiovascular: Regular rate, Regular Rhythm, Normal S1, Normal S2, PMI Normal Abdomen: Bowel Sounds Present, Soft, Non Tender, Non-Distended, No Hepato- splenomegaly Extremities: No clubbing, No cyanosis, No edema Skin: No rashes, No breakdown Lymphatic: No Cervical, Supraclavicular, or Inguinal Adenopathy Neurological: Cranial nerves II-XII grossly intact, Motor Exam 5/5 strength throughout, Facial Droop Psych/Mental Status: Normal Affect, Appropriate, Alert and oriented to time, place, person, mood and affect Vital Signs Temp Pulse Resp BP Pulse Ox 98.2 F 80 16 156/75 H 96 09/10/18 10:08 09/10/18 11:01 09/10/18 10:08 09/10/18 10:08 09/10/18 10:08 Oxygen Flow Rate (L/min) 2 Oxygen Delivery Method Room Air Weight: 193 lb 1.999 oz Body Mass Index (BMI) 28.5 Finger Stick Blood Glucose 85 Intake and Output for Last 24 Hours 09/08/18 09/09/18 09/10/18 23:59 23:59 23:59 Intake Total 240 / 240 240 / 240 Balance 240 / 240 240 / 240 Laboratory Tests Past 24 Hrs 01/11/19 01/12/19 13:15 05:48 PT 13.7 INR 1.1 APTT 29.3 Triglycerides 93 Cholesterol 167 LDL Cholesterol 107 VLDL Cholesterol 19 HDL Cholesterol 41 POC Glucose 09/09/18 13:11 POC Glucose 85 Clinical Impression(s) from Imaging Studies Brain CT 09/09/18 13:03 IMPRESSION: Chronic involutional changes of the brain. Electronically Signed: Sylvester Rey DO at 14:19 EST Tel , Service support , Brain MRI 09/09/18 17:11 IMPRESSION: Involutional changes of the brain, as described above. 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 Electronically Signed: Jessica Mcdonald MD at 0:04 EST Tel , Service support , Medical Necessity - Tobacco Use Smoking Status: Never smoker Tobacco Use: Non-smoker Assessment/Plan This is a 77 years old male patient was sent to ED because he was found to have left facial droop when he went to see his PCP for a routine follow-up visit and he was admitted for evaluation for possible TIA versus acute stroke. #1 left facial droop: TIA versus acute stroke. He has no other symptoms or findings consistent with acute stroke. Started on aspirin, will start Lipitor. CT scan brain showed no acute findings. MRI brain showed no acute infarction or hemorrhage. MRA of the head revealed severe stenosis at the lateral aspect of the M1 segment of the right middle cerebral artery. MRA of the neck revealed occlusion of the right vertebral artery with reconstitution by collaterals. Apart from minimal left-sided facial droop, no other focal deficit on physical exam. EKG revealed normal sinus rhythm with PACs, no acute ischemic changes or cardiac arrhythmias. Routine blood work was unremarkable. Troponin is negative. Lipid profile reviewed. 2D echocardiogram performed, awaiting the report. Neurology consulted, awaiting recommendations. #2 right MCA M1 segment severe stenosis: This is an incidental finding on MRA of the head. Not sure if this is related to his presenting symptoms. Patient denies any symptoms of dizziness, lightheadedness, no focal weakness. Awaiting neurology recommendations. #3 hypertension: Blood pressure slightly raised, continue lisinopril. #4 GERD: Continue PPI. #5 history of prostate cancer: Stable in remission. #6 DVT prophylaxis: Subcu Lovenox. This note was generated with [employer] dictation software. It may contain incorrect words, spelling, and punctuation that were not noted in checking the note before signing. Code Visit OBSV E&M: 19349 Subsequent observation care L2
--- NOTE | 2018-09-10 14:54 | CON.PCM_ITS ---
Problem List (1) Facial droop Status: Suspected Reason for Consult Date of Consultation: 09/10/18 Reason for Consultation: Facial droop History of Present Illness: The patient is a 77 year old M with PMH HTN, prostate cancer admitted with ? facial droop. Per patient he tripped about few days ago, so went to his PCP yesterday (09/09/18) and saw BIOMEDICAL SCIENTIST Natasha who felt he had some facial droop and so was sent to ED for further evaluation. Per patient he never felt he had a facial droop, denies any focal motor weakness, dizziness, sensory loss, visual disturbances, speech disturbances. Denies any frequent falls, does not use cane or walker to ambulate, does drive. He is not on ASA at baseline. Per ED documentation he may have had subtle facial droop but again patient denies the same, also hospitalist note documented slurred speech but again patient denies any slurred speech, he feels his speech is at baseline. MRI brain done on admission did not show any acute stroke. MRA head/neck reported to show right vertebral artery occlusion and lateral aspect of right M1 severe stenosis. [] Past Medical History Past Medical History (Chronic Problems): Chronic Problems (Last Updated 09/10/18 @ 14:12 by Fara Mathias MD) Hypertension (Chronic) Prostate cancer (Chronic) GERD (gastroesophageal reflux disease) (Chronic) Cataracts, bilateral (Chronic) Arthritis (Chronic) Seasonal allergies (Chronic) Personal history of colonic polyps (Chronic) Medical History: Medical History (Last Updated 09/10/18 @ 14:12 by Fara Mathias MD) Prostate cancer (Chronic) C61 GERD (gastroesophageal reflux disease) (Chronic) K21.9 Cataracts, bilateral (Chronic) H26.9 Arthritis (Chronic) M19.90 Seasonal allergies (Chronic) J30.2 Allergies latex Allergy (Intermediate, Verified 09/09/18 12:58) Bumps Home Medications: Ambulatory Orders Medication Instructions Recorded Omeprazole [Prilosec] 20 mg PO DAILY PRN PRN 11/05/17 Lisinopril [Zestril] 10 mg PO DAILY 09/09/18 Surgical History: Surgical History (Last Reviewed 09/09/18 @ 17:10 by Magdy Fang DO) History of cataract extraction Z98.49 10/15, 04/15, 10/17, 11/14 History of hand surgery Z98.890 History of prostatectomy Z90.79 / Smoking Status: Never smoker Tobacco Use: Non-smoker Alcohol: None Drugs: None - *Family History Maternal Family History: Family History (Last Reviewed 09/09/18 @ 17:10 by Magdy Fang DO) Brother Arthritis Brother Arthritis Heart disease CVA (cerebral vascular accident) Mother Myocardial infarction Heart disease CVA (cerebral vascular accident) Father Kidney disease Review of Systems Constitutional: Reports: - - complete ROS negative except as documented in HPI Patient Problems: Active and Suspected Problems (Last Updated 09/10/18 @ 14:12 by Fara Mathias MD) Facial droop (Suspected) - Physical Exam General: Alert HEENT: Normocephalic Neck: Supple Lungs: Normal air movement Cardiovascular: Normal S1, Normal S2 Abdomen: Bowel Sounds Present Extremities: No cyanosis Neurological: - - consious, alert, AoA x3, CN 2-12 grossly intact, no facial droop or dysarthria on examination at present, power 5/5 all 4extermities, no sensory loss, no cerebellar signs, gait normal, Reflex + B/L B/S/T/K/A, NIHSS 0 at present, mRS 0 at baseline Psych/Mental Status: Normal Affect Vital Signs Temp Pulse Resp BP Pulse Ox 98.2 F 80 16 156/75 H 96 09/10/18 10:08 09/10/18 11:01 09/10/18 10:08 09/10/18 10:08 09/10/18 10:08 Oxygen Flow Rate (L/min) 2 Oxygen Delivery Method Room Air Weight: 87.6 kg Body Mass Index (BMI) 28.5 Finger Stick Blood Glucose 85 Intake and Output for Last 24 Hours 09/08/18 09/09/18 09/10/18 23:59 23:59 23:59 Intake Total 240 / 240 240 / 240 Balance 240 / 240 240 / 240 Laboratory Tests Past 24 Hrs 09/10/18 05:48 Triglycerides 93 Cholesterol 167 LDL Cholesterol 107 VLDL Cholesterol 19 HDL Cholesterol 41 POC Glucose 09/09/18 13:11 POC Glucose 85 Assessment/Plan The patient is a 77 year old M with PMH HTN, prostate cancer admitted with ? facial droop. Per patient he tripped about few days ago, so went to his PCP yesterday (09/09/18) and saw BIOMEDICAL SCIENTIST Natasha who felt he had some facial droop and so was sent to ED for further evaluation. Per patient he never felt he had a facial droop, denies any focal motor weakness, dizziness, sensory loss, visual disturbances, speech disturbances. Denies any frequent falls, does not use cane or walker to ambulate, does drive. He is not on ASA at baseline. Per ED documentation he may have had subtle facial droop but again patient denies the same, also hospitalist note documented slurred speech but again patient denies any slurred speech, he feels his speech is at baseline. MRI brain done on admission did not show any acute stroke. MRA head/neck reported to show right vertebral artery occlusion and lateral aspect of right M1 severe stenosis. Impression ? left facial droop. Plan -MRI brain no acute infarct -MRA head/neck right vert occlusion and lateral aspect right M1 stenosis (not sure what radiologist means by lateral aspect of right M1- but images reviewed possible distal M1 stenosis). Discussed about getting CTA head/neck with the patient but per patient he does not want to get the same at present. -ASA and Lipitor- given MRA head/neck findings -LDL-107, check Hba1c -Check TTE -PT/OT -GI/DVT prophylaxis -Stroke risk factors discussed and stroke education provided -Goal BP < 130/80 mmHg and Hba1c < 7% -Avoid hypotension -Follow up with Neurology as outpatient in 4-6 weeks -Please call with questions if any -Thank you for allowing us to participate in patient's care and management Code Visit Inpatient E&M: 38504 Init Hosp L3
--- NOTE | 2018-09-10 15:28 | DCINST_ITS ---
- Discharge Diagnoses Current Active Problems: Current Active and Chronic Problems (Last Updated 09/10/18 @ 14:12 by Fara Mathias MD) Hypertension (Chronic) You will use the following diet at home:: Cardiac Your food should be the consistency of: Regular Discharge Activity: Return to Normal Activity Weight Bearing Status: Weight bearing as tolerated Call your doctor if you observe: Fever of 101 or Higher, Shortness of breath, Dizziness, Fainting spells, Chest pain, Increased palpitations (irregular heartbeat), Uncontrolled pain Allergies/Adverse Reactions: Allergies latex Allergy (Intermediate, Verified 09/09/18 12:58) Bumps Medications to take at Discharge Omeprazole [Prilosec] 20 mg PO DAILY PRN PRN 11/05/17 Lisinopril [Zestril] 10 mg PO DAILY 09/09/18 Aspirin [Aspirin, Baby] 81 mg PO DAILY@0800 #90 tab.chew 09/10/18 Atorvastatin Calcium [Lipitor] 20 mg PO QHS #90 tablet 09/10/18 The following prescriptions were given: Aspirin [Aspirin, Baby] 81 mg PO DAILY@0800 #90 tab.chew Atorvastatin Calcium [Lipitor] 20 mg PO QHS #90 tablet Primary Care Physician: Mike Sevilla DO [Primary Care Provider] - Please follow up with your Primary Care Physician in: 1-2 weeks. Test Results: Test results from this visit will be discussed in further detail at your follow- up appointment, if applicable. Please Follow Up With: Tali Powers MD When: 4-6 week.
--- NOTE | 2018-09-10 15:28 | DS.PCM_ITS ---
Discharge Date and Diagnosis Date of Admission: 09/09/18 Date of Discharge: 09/10/18 - Primary Discharge Diagnosis Active and Suspected Problems (Last Updated 09/10/18 @ 14:12 by Fara Mathias MD) #1 questionable left facial droop, acute stroke ruled out, unlikely due to TIA. #2 right MCA M1 segment severe stenosis. 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 - Secondary Discharge Diagnosis Chronic Problems (Last Updated 09/10/18 @ 14:12 by Fara Mathias MD) Hypertension (Chronic) Prostate cancer (Chronic) GERD (gastroesophageal reflux disease) (Chronic) Cataracts, bilateral (Chronic) Arthritis (Chronic) Seasonal allergies (Chronic) Personal history of colonic polyps (Chronic) Hospital Course and Treatment Imaging Results: Clinical Impression(s) from Imaging Studies Brain CT 09/09/18 13:03 IMPRESSION: Chronic involutional changes of the brain. Electronically Signed: Sylvester Rey DO at 14:19 EST Tel , Service support , Brain MRI 09/09/18 17:11 IMPRESSION: Involutional changes of the brain, as described above. 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 Electronically Signed: Jessica Mcdonald MD at 0:04 EST Tel , Service support , , neurology. Operations: None Procedures: 2-D Echocardiogram, EKG Summary of Care Provided: Patient seen and examined on the day of discharge and appeared to be stable to be discharged home. Left facial droop is very minimal and barely visible and patient actually went to his PCPs office for a routine follow-up visit and he was instructed to come to the emergency room for evaluation. He denies any other symptoms suggestive of stroke. His vital signs are stable. The patient is a 77 year old M was sent from his PCPs office to ED for evaluation for left facial droop. The patient went to his PCPs office for a follow-up visit and he has no complaints. He was informed that he has left facial droop and instructed to go to ED for evaluation. He denied any other symptoms suggestive of stroke such as blurred vision, slurred speech, numbness or tingling, focal arm or leg weakness. CT scan brain without contrast showed no acute findings. MRI brain also revealed no evidence of acute infarction or hemorrhage. MRA of the head revealed severe stenosis of M1 segment of the right MCA. MRA of the neck revealed occlusion of the right vertebral artery with reconstitution by collaterals. His EKG revealed normal sinus rhythm with PACs without evidence of acute ischemic changes or cardiac arrhythmias. Troponin was negative. Routine blood work was unremarkable. Lipid profile revealed total cholesterol of 167, LDL cholesterol of 107, HDL cholesterol of 41. Neurology consulted and doubted that patient has any facial droop and acute stroke ruled out. 2D echocardiogram revealed ejection fraction of 60%, review TR, trivial AR, RVSP of 30 and very faintly positive saline contrast study for hotbr-cs-iwdw shunt consistent with a small PFO versus ASD. I called the patient on his cell phone number at [phone] and I explained to him the findings on the 2D echocardiogram. There was no indication to start patient on anticoagulation as acute stroke ruled out. Discharged home in a stable medical condition, discharged on aspirin and statins, recommended follow-up with PCP in 1-2 weeks and follow-up with neurology in 4-8 weeks and I would recommend repeat 2D echocardiogram in 1 year. - Physical Exam General: Alert, Oriented x3, Cooperative, No apparent distress HEENT: Atraumatic, PERRLA, EOMI, Normocephalic Oral: Moist Mucosa, No Gingival or Mucosal Lesions/ Ulcerations Neck: Supple, No JVD, Negative Carotid Bruits, Trachea Midline, Thyroid Normal Size and Texture Lungs: Clear to auscultation, Normal air movement, No rhonchi, No wheeze, No rales Cardiovascular: Regular rate, Regular Rhythm, Normal S1, Normal S2 Abdomen: Bowel Sounds Present, Soft, Non Tender, Non-Distended, No Hepato- splenomegaly Extremities: No clubbing, No cyanosis, No edema Lymphatic: No Cervical, Supraclavicular, or Inguinal Adenopathy Neurological: Cranial nerves II-XII grossly intact, Motor Exam 5/5 strength throughout, - - Very minimal and barely visible left facial droop. Psych/Mental Status: Normal Affect, Appropriate, Alert and oriented to time, place, person, mood and affect Vital Signs Temp Pulse Resp BP Pulse Ox 98.2 F 64 16 156/75 H 96 09/10/18 10:08 09/10/18 15:01 09/10/18 10:08 09/10/18 10:08 09/10/18 10:08 Oxygen Flow Rate (L/min) 2 Oxygen Delivery Method Room Air Weight: 193 lb 1.999 oz Body Mass Index (BMI) 28.5 Finger Stick Blood Glucose 85 Intake and Output for Last 24 Hours 09/08/18 09/09/18 09/10/18 23:59 23:59 23:59 Intake Total 240 / 240 240 / 240 Balance 240 / 240 240 / 240 Laboratory Tests Past 24 Hrs 09/10/18 05:48 Triglycerides 93 Cholesterol 167 LDL Cholesterol 107 VLDL Cholesterol 19 HDL Cholesterol 41 POC Glucose 09/09/18 13:11 POC Glucose 85 Discharge Activity: Return to Normal Activity Weight Bearing Status: Weight bearing as tolerated Call your doctor if you observe: Fever of 101 or Higher, Shortness of breath, Dizziness, Fainting spells, Chest pain, Increased palpitations (irregular heartbeat), Uncontrolled pain Home Medications: Medications to take at Discharge Omeprazole [Prilosec] 20 mg PO DAILY PRN PRN 11/05/17 Lisinopril [Zestril] 10 mg PO DAILY 09/09/18 Aspirin [Aspirin, Baby] 81 mg PO DAILY@0800 #90 tab.chew 09/10/18 Atorvastatin Calcium [Lipitor] 20 mg PO QHS #90 tablet 09/10/18 Following Prescrptions Were Given to Patient: Aspirin [Aspirin, Baby] 81 mg PO DAILY@0800 #90 tab.chew Atorvastatin Calcium [Lipitor] 20 mg PO QHS #90 tablet Primary Care Physician: Mike Sevilla DO [Primary Care Provider] - Please follow up with your Primary Care Physician in: 1-2 weeks. Please Follow Up With: Tali Powers MD When: 4-6 week. Disposition: Home Minutes spent on discharge:: 25 Patient Condition:: Stable Medical Necessity - Tobacco Use Smoking Status: Never smoker Tobacco Use: Non-smoker Meaningful Use Info Meaningful Use Diagnoses (Choose all that apply): None applicable Code Visit OBSV E&M: 81502 Observation care discharge
== END 2018-09-10 15:27 | disposition home or self-care (01) ==
LOC: ED 14:56 → PCU 16:56
PROVIDERS: Emergency Provider Emergency Medicine; Family Provider Family Medicine; PCP Family Medicine; Visit Provider Hospitalist
DX: R29.810 Facial weakness (principal); I66.01 Occlusion and stenosis of right middle cerebral artery; I65.01 Occlusion and stenosis of right vertebral artery; R47.81 Slurred speech; K21.9 Gastro-esophageal reflux disease without esophagitis; I10 Essential (primary) hypertension; M19.90 Unspecified osteoarthritis, unspecified site; Z85.46 Personal history of malignant neoplasm of prostate; Z86.010 Personal history of colon polyps; Z79.899 Other long term (current) drug therapy
CPT/HCPCS: 36415; 70450; 70544; 70549; 70551; 80048; 80061; 82962; 84484; 85025; 85610; 85730; 92523; 93005; 93306; 97161; 97165; 99218; 99283; A9585; A4216; G0378

== ENCOUNTER → 2018-10-18 08:26 | Outpatient (CLI) | payer MEDICARE, SELFPAY ==
[2018-09-27 13:37] VITALS: BMI 28.5
[2018-10-18 12:36] LABS: Cholesterol 106 mg/dL (200); High Density Lipoprotein 46 mg/dL; PSA,Total - Annual Screen < 0.01 ng/mL (0.00-4.00); Triglycerides 59 mg/dL; Very Low Density Lipoprotein 12 mg/dL (5-40)
== END ==
PROVIDERS: Family Provider Family Medicine; PCP Family Medicine; Visit Provider Family Medicine
DX: I10 Essential (primary) hypertension (principal); C61 Malignant neoplasm of prostate; Z12.5 Encounter for screening for malignant neoplasm of prostate
CPT/HCPCS: 36415; 80061; 84153; G0103

== ENCOUNTER → 2019-05-26 | Outpatient (CLI) | payer MEDICARE, SELFPAY ==
[2019-05-26 10:04] VITALS: BMI 28.5
--- NOTE | 2019-05-26 10:46 | RAD_ITS ---
STUDY: X-RAY LEFT FOOT, SECOND TOE REASON FOR EXAM: Male, 78 years old. Second toe pain after recent trauma. TECHNIQUE: 3 view(s) of the toe were obtained. COMPARISON: Prior comparison studies are not available for review at this time. FINDINGS: There is demineralization of the metatarsus. Normal metatarsophalangeal (M.T.P) joint. Normal interphalangeal joints. There appears to be a nondisplaced fracture of the tuft of distal phalanx of the second toe. The phalanges otherwise have a normal appearance. There is soft tissue swelling of the toe. RAD/Toe(s) Min 2 Views IMPRESSION: Undisplaced fracture of the distal phalanx of the second toe. Electronically Signed: Ksenia Colin MD at 11:22 EDT , Service support ,
== END | disposition home or self-care (01) ==
LOC: MTRAD 10:45
PROVIDERS: Family Provider Family Medicine; PCP Family Medicine; Referring Provider Nurse Practitioner Family; Visit Provider Nurse Practitioner Family
DX: S99.922A Unspecified injury of left foot, initial encounter (principal)
CPT/HCPCS: 73660

== ENCOUNTER → 2019-06-29 | Outpatient (CLI) | payer MEDICARE, SELFPAY ==
[2019-06-27 15:51] VITALS: BMI 28.6
[2019-06-29 12:19] LABS: Absolute Lymphocyte Count 1.23 X10^3/uL (0.83-4.51); Absolute Neutrophil Count 3.3 X10^3/uL (2.0-7.7); Basophil# 0.04 X10^3/uL; Basophil% 0.7 % (0-1); Eosinophil# 0.53 X10^3/uL; Eosinophils% 8.9 % (0-5); Hematocrit 44.8 % (40-54); Hemoglobin 14.8 g/dL (13.0-16.5); Lymphocyte # 1.23 X10^3/ul (4.0); Lymphocyte % 20.6 % (19-41); Mean Corpuscular Volume 87.7 fL (80-94); Mean Platelet Vol. 11.5 fl (6.2-12.0); Monocyte# 0.88 X10^3/uL; Monocyte% 14.7 % (0-10); NRBC Flagged by Analyzer 0 % (0-5); Neutrophil # 3.28 X10^3/uL (2.7-7.7); Neutrophil % 54.9 % (47-70); Platelet Count 203 K/mm3 (150-450); RBC Distribution Width SD 45.1 fl (35.1-43.9); Red Blood Count 5.11 M/mm3 (4.6-6.2)
[2019-06-29 12:35] LABS: AST(SGOT) 25 U/L (15-37); Alanine Aminotransfer ALT/SGPT 21 U/L (16-61); Albumin, Serum 3.5 g/dL (3.2-5.0); Alkaline Phosphatase 105 U/L (45-117); Anion Gap 4 (5-15); BUN 18 mg/dL (7-18); Calcium,Total 8.9 mg/dL (8.5-10.1); Chloride 107 mmol/L (98-107); EST Glomerular Filtration Rate 63 mL/min (>60); Est Glom Filt Rate - Afr Amer 76 mL/min (>60); Globulin 3.6 g/dL (2.2-4.2); Glucose 96 mg/dL (74-106); Potassium 4.4 mmol/L (3.5-5.1); Protein, Total 7.1 g/dL (6.4-8.2); Sodium Level 139 mmol/L (136-145)
== END | disposition home or self-care (01) ==
LOC: BIMLAB 08:57
PROVIDERS: Family Provider Family Medicine; PCP Family Medicine; Visit Provider Family Medicine
DX: I10 Essential (primary) hypertension (principal); R26.89 Other abnormalities of gait and mobility
CPT/HCPCS: 36415; 80053; 85025

== ENCOUNTER 2019-07-07 12:00 | Outpatient (RCR) | payer MEDICARE, SELFPAY ==
[2019-06-27 15:51] VITALS: BMI 28.6
--- NOTE | 2019-06-30 15:36 | HP.PTEVAL_ITS ---
Patient's Visit Information NOE MIRELES is a 78 year old M referred to Physical Therapy by Mike Sevilla DO with a diagnosis of gait abnormality. Date of Evaluation: 06/30/19 Physical Therapist: Magdy Hu DPT, OCS, CSCS - Visit Plan Frequency: 1-2x /Week Duration: 2-4 Weeks Plan: neurocom test then likely teach SLS, foam progression to address any concerns. 1-2x/week for 1-2 weeks then f/u if needed down the road to ensure progress. - Subjective Findings: Noticed balance getting wrose. Pulling toward R side without reason, happens now and then. No falls, did trip one time on edging in the spring. No cane or walker. No neuropathy. No weakness or fatigue. Doctor sent to therapy. No dizzy spells. sleeping good relatively. Broke toe in April swimming and was in a boot which he wore rarely. Unemployed until November as works at [employer]. Works out at [employer] for strength. No problem out there. Hobbies: workout and a little swiming. Has yard work whcih is not a problem. - Objective Wobbly with foam ec stance but able. SLS is 10 seconds each wobbly, tandem stance with VOR falls R immediately. No dizzyness. Walks normal with forward head and scapular posture. reflexes patella and achilles 2/3. Sensation LE WNL to gross light touch. Strength LE 5/5 without myotomal problmes. Felxibility slightly tight in achilles and HS. ROM wFL all LE joints. coordination to reciprocal toe tap and heel tap and heel to lyons test. - Balance Scores Functional Gait Assessment Score: 29 % Disability: 3.3400 CATSIB Score (Max score 120 seconds): 120 - Goals Goal 1:: neurocom test adn exercises instructed I to address any balance abnormalities Goal Time Frame: 2-4 Weeks - Rehabilitation Potential Physical Therapy Diagnosis: slight vestibular weakness causing imbalance Rehabilitation Potential: Fair - Anticipated Interventions Patient/Client Instruction: Educate patient on: Condition, Plan of Care For the Purpose of:: To improve gait and locomotor functions, To improve safety Therapeutic Exercise to Include: Balance training For the Purpose of:: To improve balance, To improve safety with gait Thank you for the opportunity to evaluate your patient. For Medicare and Medicare HMO plans, please review the plan of care and approve it. It will need to be FAXED BACK to us at [phone] for Medicare purposes. For Medicare only, by signing this I certify the plan of care. Please let me know if there are questions or concerns regarding this plan of care. Physician Signature: Date:
--- NOTE | 2019-07-07 12:34 | HP.PTDCSUM ---
HP - PT D/C Summary It has been my pleasure to treat NOE MIRELES under orders from Mike Sevilla DO, for the diagnosis of gait abnormality for a total of 2 visit(s). Discharge Date: 07/07/19 Please see the following information for a summary of their discharge status. - Subjective Subjective: Doing OK - Overall Improvement % Improvement: 0 - Objective Objective/Function: SOT: Normal. MCT:normal. LOS:Normal - Goals Goal 1:: neurocom test adn exercises instructed I to address any balance abnormalities Goal Progress: Goal Met - Plan Plan: d/c to HEP - D/C Information Discharge Comments: Doing well according to balance tests. Educated on HEP and d/c If there are questions or concerns regarding this patient's physical therapy, please feel free to call me at [phone]. Thank you for the referral of this patient. Sincerely, Magdy Hu, DPT, OCS, CSCS
== END 2019-07-07 19:00 | disposition home or self-care (01) ==
LOC: PT 12:00
PROVIDERS: Family Provider Family Medicine; PCP Family Medicine; Referring Provider Family Medicine; Visit Provider Family Medicine
DX: R26.89 Other abnormalities of gait and mobility (principal)
CPT/HCPCS: 97162; 97530

== ENCOUNTER → 2020-01-02 15:16 | Outpatient (CLI) | payer MEDICARE, SELFPAY ==
[2020-01-02 14:39] VITALS: BMI 28.6
--- NOTE | 2020-01-02 15:17 | RAD_ITS ---
STUDY: X-RAY - RIGHT SHOULDER REASON FOR EXAM: Male, 79 years old. Pain TECHNIQUE: 4 view(s) of the shoulder. COMPARISON: None. FINDINGS: Normal glenohumeral articulation. Normal acromioclavicular joint. Normal acromion. Normal humeral head and visualized proximal humerus. The soft tissue structures are unremarkable. Normal visualized pulmonary apex. RAD/Shoulder min 2 Views IMPRESSION: Normal x-ray examination of the shoulder. Electronically Signed: Don Romero, at 15:51 EDT , Service support ,
--- NOTE | 2020-01-02 15:26 | RAD_ITS ---
STUDY: X-RAY - LEFT SHOULDER REASON FOR EXAM: Male, 79 years old. Pain TECHNIQUE: 4 view(s) of the shoulder. COMPARISON: None. FINDINGS: There is moderate degenerative arthrosis of the glenohumeral articulation. There is hypertrophic osteoarthrosis of the acromioclavicular joint with inferior osseous spur formation. Normal acromion. Normal humeral head and visualized proximal humerus. The soft tissue structures are unremarkable. Normal visualized pulmonary apex. 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 Electronically Signed: Don Romero, at 15:50 EDT , Service support ,
== END ==
PROVIDERS: PCP Family Medicine; Referring Provider Family Medicine; Visit Provider Family Medicine
DX: M25.519 Pain in unspecified shoulder (principal)
CPT/HCPCS: 73030

== ENCOUNTER → 2020-04-03 09:30 | Outpatient (CLI) | payer MEDICARE, SELFPAY ==
[2020-04-03 09:09] VITALS: BMI 28.6
[2020-04-03 11:12] LABS: Anion Gap 2 (5-15); BUN 17 mg/dL (7-18); BUN/Creat Ratio 14.8 RATIO (10-20); Calcium,Total 8.9 mg/dL (8.5-10.1); Chloride 107 mmol/L (98-107); Creatinine, Serum 1.15 mg/dL (0.70-1.30); EST Glomerular Filtration Rate 66 mL/min (>60); Est Glom Filt Rate - Afr Amer 79 mL/min (>60); Glucose 86 mg/dL (74-106); Potassium 4.4 mmol/L (3.5-5.1); Sodium Level 140 mmol/L (136-145)
== END ==
PROVIDERS: PCP Family Medicine; Referring Provider Family Medicine; Visit Provider Family Medicine
DX: I10 Essential (primary) hypertension (principal)
CPT/HCPCS: 36415; 80048

== ENCOUNTER → 2020-10-08 09:59 | Outpatient (CLI) | payer MEDICARE, SELFPAY ==
[2020-10-08 09:35] VITALS: BMI 29.6
[2020-10-08 13:26] LABS: ALB/GLOB Ratio 0.8 RATIO (0.9-2.4); AST(SGOT) 26 U/L (15-37); Alanine Aminotransfer ALT/SGPT 19 U/L (16-61); Albumin, Serum 3.3 g/dL (3.2-5.0); Alkaline Phosphatase 137 U/L (45-117); Anion Gap 4 (5-15); BUN 22 mg/dL (7-18); BUN/Creat Ratio 18.6 RATIO (10-20); Calcium,Total 8.8 mg/dL (8.5-10.1); Chloride 104 mmol/L (98-107); Cholesterol 181 mg/dL (200); Creatinine, Serum 1.18 mg/dL (0.70-1.30); EST Glomerular Filtration Rate 64 mL/min (>60); Est Glom Filt Rate - Afr Amer 77 mL/min (>60); Glucose 91 mg/dL (74-106); High Density Lipoprotein 48 mg/dL; Potassium 4.1 mmol/L (3.5-5.1); Protein, Total 7.3 g/dL (6.4-8.2); Sodium Level 136 mmol/L (136-145); Triglycerides 88 mg/dL; Very Low Density Lipoprotein 18 mg/dL (5-40)
== END ==
PROVIDERS: PCP Family Medicine; Referring Provider Family Medicine; Visit Provider Family Medicine
DX: I10 Essential (primary) hypertension (principal)
CPT/HCPCS: 36415; 80053; 80061

== ENCOUNTER 2021-01-16 09:00 | Outpatient (RCR) | payer MEDICARE, SELFPAY ==
--- NOTE | 2020-12-18 08:23 | HP.PTEVAL_ITS ---
Patient's Visit Information NOE MIRELES is a 80 year old M referred to Physical Therapy by Dr. Alexandr Harrell, DO with a diagnosis of BILATERAL TENDONITIS,CERVICAL SPINE RADICULOPATHY. Date of Evaluation: 12/17/20 Physical Therapist: Nino Mark PT, Cert MDT, OCS - Visit Plan Frequency: 2x /Week Duration: 4 Weeks Plan: PT INTERVETION RTC/SCAPULAR STRENGTHENING,POSTURAL EX'S,ROM/FLEXABLITY - Subjective This 79 y/o male presents to physical therapy with bilateral shoulder and neck pain.Patient has had shoulder pain 1 year. Then pain return noticed pain with functional activities but sleeping on sides. Patient seen DR did x-rays mod AC joint neck shoulder and cervical DDD. Did corizone bilateral shoulders which helped. Recommended PT. Patient would have symptoms below elbow but no cervical pain except on right side. Patient did of parathesia/tingling but better. Plan to RTD 5 weeks. Patient symptoms affects sleeping. Aggraveting factors lifting ,[place] activities. Alleviating factors cortizone. Patient has no cervical. Denies MARIE/dizzines/nausea/tinnutus.Patient symptosm affects QOL and function. Patient is able abld golf. SOCAIL: . VOCATION: retired - Pain Bilateral Neck Pain Intensity (Out of 10): 0 Pain Intensity Range: 10 Bilateral Shoulder Pain Intensity (Out of 10): 1 Pain Intensity Range: 10 - Objective POSTURE:mild foward posture ,rounded shoulders mod. NEURO: denies parathesia/tingling,reflexes C5-C6-C7 2/3. PALAPTION: unremrakable. CERCICAL ROM: mod loss extension,lateral flexion,rotation,flexion min loss. AROM: right shoulder flexion 130 degrees,left 140 degrees ,ER 90 bilaterally ,IR l2. MMT: RTC 4/5 ,deltoid 4-/5 - Special Tests C/S Radiculapathy - Left Upper limb tension test: Negative C/S Radiculapathy - Right Upper limb tension test: Negative C/S Radiculapathy - Left Spurlings: Negative C/S Radiculapathy - Right Spurlings: Negative C/S Radiculapathy - Left Cervical distraction: Negative C/S Radiculapathy - Right Cervical distraction: Negative C/S Radiculapathy - Left Relief test: Negative C/S Radiculapathy - Right Relief test: Negative C/S Radiculapathy - Valsalva: Negative Sharp Cary: Negative Vertebral Artery Test: Negative Alar Ligament Test: Negative Cervical Sitting: Protrusion - Mechanical Response: No effect Cervical Sitting: Protrusion - Symptoms During Testing: No effect Cervical Sitting: Protrusion - Symptoms After Testing: No effect Cervical Sitting: Retraction - Mechanical Response: No effect Cervical Sitting: Retraction - Symptoms During Testing: No effect Cervical Sitting: Retraction - Symptoms After Testing: No effect Cervical Sitting: Retraction-Extension - Mechanical Response: No effect Cerv Sitting: Retraction-Extension - Symptoms During Testing: No effect Cerv Sitting: Retraction-Extension - Symptoms After Testing: No effect Cervical Sitting: Sidebend Right - Mechanical Response: No effect Cervical Sitting: Sidebend Right - Symptoms During Testing: No effect Cervical Sitting: Sidebend Right - Symptoms After Testing: No effect Cervical Sitting: Sidebend Left - Mechanical Response: No effect Cervical Sitting: Sidebend Left - Symptoms During Testing: No effect Cervical Sitting: Sidebend Left - Symptoms After Testing: No effect Cervical Sitting: Rotation Right - Mechanical Response: No effect Cervical Sitting: Rotation Right - Symptoms During Testing: No effect Cervical Sitting: Rotation Right - Symptoms After Testing: No effect Cervical Sitting: Rotation Left - Mechanical Response: No effect Cervical Sitting: Rotation Left - Symptoms During Testing: No effect Cervical Sitting: Rotation Left - Symptoms After Testing: No effect Cervical Sitting: Flexion - Mechanical Response: No effect Cervical Sitting: Flexion - Symptoms During Testing: No effect Cervical Sitting: Flexion - Symptoms After Testing: No effect R Shoulder Empty Can - SS: Negative R Shoulder Belly Press - SupScap: Negative R Shoulder Neer - Impingement: Positive R Shoulder Pandey Adriel - Impingement: Positive R Shoulder Speeds Test - Labrum/Biceps: Negative R Shoulder Shrug Sign - OA/Adhesive Capsulitis: Negative L Shoulder Drop Sign - IS Test: Negative L Shoulder Empty Can - SS: Negative L Shoulder Belly Press - SupScap: Negative L Shoulder Neer - Impingement: Positive L Shoulder Pandey Dariel - Impingement: Positive L Shoulder Shrug Sign - OA/Adhesive Capsulitis: Negative - Goals Goal 1:: Patient to be I with HEP. Goal Time Frame: 4-6 Weeks Goal 2:: Improve posture for ADLS Goal Time Frame: 4-6 Weeks Goal 3:: Patient to decrease right shoulder and neck pain by 50% to improve function Goal Time Frame: 4-6 Weeks Goal 4:: Patient to increase strength bilateral shoulder by 5/5 to improve function with IADLS Goal Time Frame: 4-6 Weeks Goal 5:: Patient to improve cervical ROM for function of recovery Goal Time Frame: 4-6 Weeks Goal 6:: Patient to improve QUICK DASH by 5 points or > to improve function. Goal Time Frame: 4-6 Weeks - Rehabilitation Potential Physical Therapy Diagnosis: PRECAUTIONS: LATEX ALLERGY. This patient has bilateral RTC tendonitis with impingement signs with pain decrease ROM and stren gth for [place] activies aloh with cervical postural deficits thus benifit from skilled PT Rehabilitation Potential: Good - Anticipated Interventions Thank you for the opportunity to evaluate your patient. For Medicare and Medicare HMO plans, please review the plan of care and approve it. It will need to be FAXED BACK to us at [phone] for Medicare purposes. For Medicare only, by signing this I certify the plan of care. Please let me know if there are questions or concerns regarding this plan of care. Physician Signature: Date:
--- NOTE | 2021-01-16 10:16 | HP.PTDCSUM ---
It has been my pleasure to treat NOE MIRELES referred by Dr. Alexandr Harrell DO, with the diagnosis of BILATERAL TENDONITIS,CERVICAL SPINE RADICULOPATHY for a total of 9 visit(s). Discharge Date: 01/16/21 Please see the following information for a summary of their discharge status. Subjective: Pt is not doing as good as what he would like to be. He still has a lot of pain in his shoulders. At times his arms would go to sleep reading the paper. He has a follow up with Dr Harrell on Wednesday. Pt is a side sleeper and that wakes him up being on his side. R shoulder pain 5/10 and L 7/10... at times it is a dull pain and other times it really hurts. He is doing exercises at home and they are challenging enough. He feels he has not gotten stronger. Bilateral Neck Pain Intensity (Out of 10): 0 Bilateral Shoulder Pain Intensity (Out of 10): 7 R Bicep Pain Intensity (Out of 10): 0 % Improvement: 0 Objective/Function: R shld MMT: flex 4-/5, abd 4/5, ER/ir 4/5. L shld MMT: FLEX 4/5, ABD 4/5, ir/er 4/5. Pt has rounded shoulders and tight Shoulder AROM B shoulder... elevation to approx 130 degrees B Goal 1:: Patient to be I with HEP. Goal Progress: Goal Met Goal 2:: Improve posture for ADLS Goal Progress: Goal Met Goal 3:: Patient to decrease right shoulder and neck pain by 50% to improve function Goal Progress: Not Progressing Goal 4:: Patient to increase strength bilateral shoulder by 5/5 to improve function with IADLS Goal Progress: Progressing Goal 5:: Patient to improve cervical ROM for function of recovery Goal 6:: Patient to improve QUICK DASH by 5 points or > to improve function. Plan: DC PT Discharge Comments: DC PT to HEP If there are questions or concerns regarding this patient's physical therapy, please feel free to call me at [phone]. Thank you for the referral of this patient. Sincerely, Kayleigh Kiser, MPT
== END 2021-01-16 19:00 | disposition home or self-care (01) ==
LOC: PT 09:00
PROVIDERS: PCP Family Medicine; Referring Provider Orthopaedic Surgery; Visit Provider Orthopaedic Surgery
DX: M75.81 Other shoulder lesions, right shoulder (principal); M54.12 Radiculopathy, cervical region
CPT/HCPCS: 97110; 97162

== ENCOUNTER → 2021-02-04 16:15 | Outpatient (CLI) | payer MEDICARE, SELFPAY ==
[2020-12-04 11:30] VITALS: BMI 29.7
--- NOTE | 2021-02-04 16:16 | MRI_ITS ---
STUDY: MRI CERVICAL SPINE WITHOUT CONTRAST REASON FOR EXAM: Male, 80 years old. Pain TECHNIQUE: Standardized fat and water weighted pulse sequences were obtained in the sagittal and axial planes. COMPARISON: X-ray 12/09/2020 FINDINGS: Normal foramen magnum and brainstem-cervical cord junction. Normal craniovertebral junction. Normal anterior atlantoaxial articulation. Normal odontoid process. Normal cervical lordosis. Normal vertebral bodies and posterior osseous elements. C2-3: Normal endplates. Normal disc height, signal and morphology. Normal central canal and intervertebral neural foramina. C3-4: Normal endplates. Normal disc height, signal and morphology. Normal central canal and intervertebral neural foramina. C4-5: Normal endplates. Normal disc height, signal and morphology. Normal central canal and intervertebral neural foramina. C5-6: Mild broad disc osteophyte complex produces mild spinal stenosis but no neural foraminal stenosis. C6-7: Mild broad disc osteophyte complex produces mild spinal stenosis but no neural foraminal stenosis. C7-T1: Normal endplates. Normal disc height, signal and morphology. Normal central canal and intervertebral neural foramina. Normal cervical cord. Normal visualized soft tissue structures. MRI/Spine Cervical (Routine) IMPRESSION: Multilevel degenerative changes, as described above. Electronically Signed: Dixon Lan MD at 11:53 EDT Tel , Service support ,
--- NOTE | 2021-02-04 16:16 | MRI_ITS ---
STUDY: MRI LEFT SHOULDER REASON FOR EXAM: Left shoulder pain and decreased range of motion since July. TECHNIQUE: Standardized fat and water weighted pulse sequences were obtained in all 3 orthogonal planes. COMPARISON: Radiographs 12/09/2020. FINDINGS: Normal supraspinatus tendon. There is mild infraspinatus tendinosis (T2 sagittal image 21) without discrete tendon tear. There is mild subscapularis tendinosis (T2 axial images 16, 17) without discrete tendon tear. Normal teres minor tendon. Normal supraspinatus muscle. Normal infraspinatus muscle. Normal subscapularis muscle. Normal teres minor muscle. There is a very small glenohumeral joint effusion with fluid extending into the bicipital tendon sheath. Normal humeral head and visualized proximal humerus. Normal biceps labral complex. Normal intracapsular long biceps tendon. Normal labrum. Normal capsulo- ligamentous complex. There is acromioclavicular arthrosis with hypertrophic changes abutting the supraspinatus musculotendinous junction (T2 sagittal images 12, 13). There is a Type I morphology (flat undersurface), with a neutral orientation. There is no subacromial-subdeltoid bursal fluid. Normal visualized coracohumeral and coracoacromial ligaments. Normal deltoid muscle. Normal trapezius muscle. MRI/Upper Ext Joint Only(Routine) IMPRESSION: Mild infraspinatus and subscapularis tendinosis without demonstrated rotator cuff tear. Acromioclavicular arthrosis. Very small glenohumeral joint effusion. Electronically Signed: Norman Retana MD at 7:45 EDT Tel , Service support ,
== END ==
PROVIDERS: PCP Family Medicine
DX: M54.12 Radiculopathy, cervical region (principal); M75.82 Other shoulder lesions, left shoulder
CPT/HCPCS: 72141; 73221

== ENCOUNTER 2021-03-09 09:56 | Emergency (ER) | payer MEDICARE, SELFPAY ==
[2021-03-09 09:57] VITALS: BP 129/87; PULSE 67; RESP 19; TEMP 36.9; O2SAT 94; BMI 32.6
--- NOTE | 2021-03-09 10:13 | EKG12_ITS ---
Test Reason : SYNCOPE Blood Pressure : / mmHG Vent. Rate : 065 BPM Atrial Rate : 065 BPM P-R Int : 192 ms QRS Dur : 086 ms QT Int : 384 ms P-R-T Axes : 000 -02 -01 degrees QTc Int : 399 ms Normal sinus rhythm Moderate voltage criteria for LVH, may be normal variant Inferior infarct , cannot be excluded Abnormal ECG Confirmed by ELI GIORDANO, BRETT ([id number]), editor managing newspaper BLANCA GAMINO ([id number]) on 03/12/2021 9:17:45 AM Referred By: CHAYA Confirmed By:BRETT BENITEZ MD
--- NOTE | 2021-03-09 10:14 | EDS_ITS ---
HPI History of Present Illness Chief Complaint: Syncope Detail of Chief Complaint: Syncope while in shinto Informant: patient Narrative Narrative: Patient presents to the ER via EMS after a syncopal episode in shinto this morning. Patient states that he was standing and singing when he started feeling sweaty and vision seemed fuzzy. He apparently then passed out however denies any injury. He heard somebody saying that he was out for about a minute. He denies any chest pain or palpitations. He denies shortness of breath. Currently states that he feels fine. He has been dealing with some chronic shoulder pain for which she has been seeing an orthopedic surgeon and is scheduled to see a clinical rehabilitation coordinator. He does not have history of syncope. He denies cardiac history. He is never had a stroke. Patient takes aspirin but no other anticoagulation. Patient denies recent illness and has been immunized against COVID-19 with both doses of the vaccine. Prior similar symptoms: No PFSH PFSH Medical History (Updated 03/09/21 @ 11:[address] Qiana Cohen DO) Arthritis Cataracts, bilateral GERD (gastroesophageal reflux disease) Prostate cancer Seasonal allergies Home Medications losartan 50 mg tablet 50 mg PO DAILY #90 tab 02/27/20 [Rx Last Taken Unknown] terbinafine HCl 250 mg tablet 250 mg PO DAILY #90 tab 10/08/20 [Rx Last Taken Unknown] aspirin 81 mg chewable tablet 81 mg PO DAILY@0800 #90 tab.chew 12/23/20 [Rx Last Taken Unknown] Allergy/AdvReac Type Severity Reaction Status Date / Time latex Allergy Intermediate Bumps Verified 03/09/21 09:57 Family History Brother Arthritis Brother Arthritis Heart disease CVA (cerebral vascular accident) Mother Myocardial infarction Heart disease CVA (cerebral vascular accident) Father Kidney disease Surgical History History of cataract extraction History of hand surgery History of prostatectomy Social History (Updated 12/09/20 @ 16:[address] Alexandr Harrell DO) Smoking Status: Never smoker alcohol intake: never substance use type: does not use frequency: 3-4 times per week ROS ROS ED Review of Systems ROS Unobtainable: other Details: Syncope Constitutional Constitutional ED: Reports systems reviewed and no addt'l complaints, except as documented; Denies body ache(s), change in weight or chills Eyes Eyes: Denies acute decrease in peripheral vision, change in vision, double vision or loss of vision ENT ENT ED: Reports none; Denies ear pain, lip swelling, loss taste/smell, neck pain, otalgia or sore throat Cardiovascular Cardiovascular: Reports none; Denies abdominal pain, chest pain with activity, leg edema, lightheadedness, palpitations, rapid heart rate or syncope Respiratory/Chest Respiratory/Chest: Reports none; Denies change in mental status, dry cough, dyspnea, hemoptysis, shortness of breath at rest or shortness of breath with exertion Gastrointestinal Gastrointestinal: Reports none; Denies abdominal pain, change in stool character, diarrhea, hematemesis, hematochezia, melena, rectal bleeding or vomiting Genitourinary Genitourinary ED: Reports none; Denies abdominal discomfort, anuria, dysuria, genital pain or polyuria Musculoskeletal Musculoskeletal: Reports none; Denies arthralgias, back pain, difficulty walking, extremity pain, muscle weakness or myalgias Integumentary Reports none; Denies abscess or rash Neurologic Neurologic: Reports none; Denies abnormal gait, confusion, focal weakness, frequent falls, headache(s), loss of vision, numbness, paresthesias, radicular pain, vertigo or weakness Psychiatric Psychiatric: Reports systems reviewed and no addt'l complaints, except as documented and none; Denies behavioral changes, confusion, difficulty concentrating, hallucinations, suicidal ideation, tactile hallucinations or visual hallucinations Endocrine Endocrinology: Denies none, cold intolerance, excessive sweating, fatigue or heat intolerance Hematologic/Lymphatic Hematologic/Lymphatic: Reports none; Denies anemia, easy bleeding or easy bruising Allergic/Immunologic Allergic/Immunologic ED: Denies as per HPI, none, lip swelling, mouth swelling, throat swelling, tongue swelling or hives EXAM Physical Exam Const Vital Signs: 03/09/21 09:57 03/09/21 10:00 03/09/21 10:55 Temperature 98.4 F Temperature Source Temporal Pulse Rate 67 Pulse Rate [Lying] 65 Pulse Rate [Sitting] 62 Pulse Rate [Standing] 69 Respiratory Rate 19 H Respiratory Effort Normal Non-Labored Respiratory Pattern Normal Blood Pressure 129/87 H Blood Pressure [Lying] 132/69 H Blood Pressure [Sitting] 139/71 H Blood Pressure [Standing] 142/77 H Blood Pressure Mean 101 Blood Pressure Mean [Lying] 90 Blood Pressure Mean [Sitting] 93 Blood Pressure Mean [Standing] 98 Pulse Ox 94 Oxygen Delivery Method Room Air Positive well nourished and well developed General Appearance ED: well developed and NAD HEENT Reports TM's clear and moist mucous membranes normocephalic and atraumatic; Negative for trauma or tenderness Tympanic Membrane ED: Yes TM's clear Eyes PERRL and EOMs intact bilaterally General Eye ED: Negative for pale conjunctiva or scleral icterus Neck no lymphadenopathy, supple and no JVD General: Negative for tenderness Chest Wall inspection of chest normal and palpation of chest normal Chest: Negative for tenderness Resp normal respiratory effort and clear to auscultation bilaterally Effort and Inspection: Negative for respiratory distress or pain with movement Auscultation: Negative for rhonchi, wheezes or diminished lung sounds Cardio regular rate, regular rhythm, S1 normal heart sound, S2 normal heart sound and no murmurs Peripheral Pulses: pulses 2+ throughout GI normal to inspection, nondistended, normoactive bowel sounds, soft to palpation, non-tender, non-distended and no masses Back/Spine no CVA tenderness and no thoracic nor lumbar tenderness Extremity normal to inspection General Extremety ED: Negative for edema General Extremity: Negative for edema Neuro oriented x3, CN's II-XII intact bilaterally, no sensory deficits noted and gait normal Sensorium / Orientation: awake, alert, oriented to person, oriented to place and oriented to time Motor Exam: strength 5/5 throughout and strength abnormal Psych mental status grossly normal Skin no rashes or lesions noted and no wounds MDM MDM MDM Narrative Medical decision making narrative: Patient's work-up in the emergency department is unremarkable. His orthostatic vital signs were negative and he was able to ambulate in department without difficulty. He is asymptomatic currently. I suspect patient likely had a vasovagal episode. We discussed options of admission for observation versus home and if symptoms recur or worsen to return to the emergency department. Patient would prefer to go home and return if symptoms worsen. I am comfortable with this. Advised him to push fluids and get rest today. He should return if chest pain, shortness of breath, palpitations, or condition should worsen anyway. Lab Data Labs: Laboratory Results - last 24 hr 03/09/21 03/09/21 10:05 10:05 WBC 7.9 RBC 4.91 Hgb 14.2 Hct 42.1 MCV 85.7 MCH 28.9 MCHC 33.7 RDW Std Deviation 46.6 H RDW Coeff of Jeni 14.8 H Plt Count 209 MPV 9.8 Immature Gran % (Auto) 0.400 Neut % (Auto) 69.5 Lymph % (Auto) 13.4 L [place] % (Auto) 13.1 H Eos % (Auto) 3.2 Baso % (Auto) 0.4 Absolute Neuts (auto) 5.5 Absolute Lymphs (auto) 1.06 Nucleated RBC % 0 Sodium 137 Potassium 3.9 Chloride 104 Carbon Dioxide 25.0 Anion Gap 8 BUN 18 Creatinine 1.08 Estim Creat Clear Calc 54.54 Est GFR (MDRD) Af Amer 85 Est GFR (MDRD) Non-Af 70 BUN/Creatinine Ratio 16.7 Glucose 103 Calcium 8.7 Troponin I High Sens 5.0 EKG Initial EKG: Comments: Sinus rhythm with a ventricular rate of 65 bpm with no acute ST segment changes noted. Discharge Plan Triage Chief Complaint: Syncope ED Provider: Qiana Cohen Dx/Rx/DC Orders Clinical Impression: Vasovagal syncope Instructions: ED Fainting, Vagal Reaction Prescriptions: No Action losartan 50 mg tablet 50 mg PO DAILY Qty: 90 RF: 3 terbinafine HCl 250 mg tablet 250 mg PO DAILY Qty: 90 RF: 1 aspirin 81 mg tablet,chewable 81 mg PO DAILY@0800 Qty: 90 RF: 3 Primary Care Provider: Mike Sevilla Referrals: Mike Sevilla, DO [Primary Care Provider] - 3-5 Days Disposition Disposition: Home, Self Care
[2021-03-09 10:21] LABS: Absolute Lymphocyte Count 1.06 X10^3/uL (0.83-4.51); Absolute Neutrophil Count 5.5 X10^3/uL (2.0-7.7); Basophil# 0.03 X10^3/uL; Basophil% 0.4 % (0-1); Eosinophil# 0.25 X10^3/uL; Eosinophils% 3.2 % (0-5); Hematocrit 42.1 % (40-54); Hemoglobin 14.2 g/dL (13.0-16.5); Lymphocyte # 1.06 X10^3/ul (0.83-4.51); Lymphocyte % 13.4 % (19-41); Mean Corp Hgb Conc 33.7 g/dL (32-36); Mean Corpuscular Hgb 28.9 pg (27.0-32.0); Mean Corpuscular Volume 85.7 fL (80-94); Mean Platelet Vol. 9.8 fl (6.2-12.0); Monocyte# 1.03 X10^3/uL; Monocyte% 13.1 % (0-10); NRBC Flagged by Analyzer 0 % (0-5); Neutrophil # 5.49 X10^3/uL (2.7-7.7); Neutrophil % 69.5 % (47-70); Platelet Count 209 K/mm3 (150-450); RBC Distribution Width CV 14.8 % (11.6-14.6); RBC Distribution Width SD 46.6 fl (35.1-43.9); Red Blood Count 4.91 M/mm3 (4.6-6.2); White Blood Count 7.9 K/mm3 (4.4-11.0)
[2021-03-09 10:37] LABS: Anion Gap 8 (5-15); BUN 18 mg/dL (7-18); BUN/Creat Ratio 16.7 RATIO (10-20); Calcium,Total 8.7 mg/dL (8.5-10.1); Chloride 104 mmol/L (98-107); Creatinine, Serum 1.08 mg/dL (0.70-1.30); EST Glomerular Filtration Rate 70 mL/min (>60); Est Glom Filt Rate - Afr Amer 85 mL/min (>60); Estimated Creatinine Clearance 54.54 ml/min; Glucose 103 mg/dL (74-106); Potassium 3.9 mmol/L (3.5-5.1); Sodium Level 137 mmol/L (136-145)
[2021-03-09] MEDS: 0.9% Normal Saline 1,000 ML 150 ML IV (10:48)
[2021-03-09 10:55] VITALS: BP 132/69; BP 139/71; BP 142/77; PULSE 62; PULSE 65; PULSE 69
[2021-03-09 11:32] VITALS: BP 139/75; PULSE 67; RESP 16; O2SAT 98
== END 2021-03-09 11:33 | disposition home or self-care (01) ==
PROVIDERS: Emergency Provider Emergency Medicine; PCP Family Medicine
DX: R55 Syncope and collapse (principal); Z79.82 Long term (current) use of aspirin; Z79.899 Other long term (current) drug therapy
CPT/HCPCS: 80048; 84484; 85025; 93005; 99285; J7030; A4216

== ENCOUNTER → 2021-03-26 11:56 | Outpatient (CLI) | payer MEDICARE, SELFPAY ==
[2021-03-20 09:01] VITALS: BMI 29.9
--- NOTE | 2021-03-26 10:05 | RAD_ITS ---
STUDY: X-RAY - PELVIS REASON FOR EXAM: Male, 80 years old. OSTEOARTHRITIS OF HIP TECHNIQUE: One view of the pelvis was obtained. COMPARISON: None. FINDINGS: There is a non-specific bowel gas pattern. Normal visualized soft tissue structures. Normal bilateral iliac wings, sacroiliac joints and visualized sacrum. Normal visualized bilateral superior and inferior pubic rami. Normal pubic symphysis. Normal ischial tuberosities. There is widening of the femoral head. Normal right acetabulum. There is mild articular joint space narrowing of the right hip. Findings suggestive of femoral acetabular impingement. Normal visualized left femoral head. Normal left acetabulum. There is mild articular joint space narrowing of the left hip. RAD/Pelvis 1 or 2 Views IMPRESSION: Degenerative changes of both hip joints. 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 Electronically Signed: Don Romero MD at 20:33 EDT , Service support ,
[2021-03-26 12:14] LABS: Erythrocyte Sedimentation Rate 26 mm/hr (0-20)
[2021-03-26 12:16] LABS: Absolute Lymphocyte Count 1.18 X10^3/uL (0.83-4.51); Basophil# 0.04 X10^3/uL; Basophil% 0.4 % (0-1); Eosinophil# 0.18 X10^3/uL; Eosinophils% 1.8 % (0-5); Hematocrit 43.6 % (40-54); Hemoglobin 14.7 g/dL (13.0-16.5); Lymphocyte # 1.18 X10^3/ul (0.83-4.51); Mean Corp Hgb Conc 33.7 g/dL (32-36); Mean Corpuscular Hgb 29.2 pg (27.0-32.0); Mean Corpuscular Volume 86.7 fL (80-94); Monocyte# 1.34 X10^3/uL; Monocyte% 13.7 % (0-10); NRBC Flagged by Analyzer 0 % (0-5); Neutrophil # 7.02 X10^3/uL (2.7-7.7); Neutrophil % 71.7 % (47-70); Platelet Count 286 K/mm3 (150-450); RBC Distribution Width CV 14.6 % (11.6-14.6); RBC Distribution Width SD 46.6 fl (35.1-43.9); Red Blood Count 5.03 M/mm3 (4.6-6.2); White Blood Count 9.8 K/mm3 (4.4-11.0)
[2021-03-26 12:44] LABS: ALB/GLOB Ratio 0.8 RATIO (0.9-2.4); AST(SGOT) 20 U/L (15-37); Alanine Aminotransfer ALT/SGPT 20 U/L (16-61); Albumin, Serum 3.4 g/dL (3.2-5.0); Alkaline Phosphatase 132 U/L (45-117); Anion Gap 6 (5-15); BUN 16 mg/dL (7-18); BUN/Creat Ratio 15.1 RATIO (10-20); Chloride 104 mmol/L (98-107); Creatinine, Serum 1.06 mg/dL (0.70-1.30); EST Glomerular Filtration Rate 72 mL/min (>60); Est Glom Filt Rate - Afr Amer 87 mL/min (>60); Globulin 4.1 g/dL (2.2-4.2); Glucose 95 mg/dL (74-106); Protein, Total 7.5 g/dL (6.4-8.2); Rheumatoid Factor < 10.0 IU/mL (<15); Sodium Level 136 mmol/L (136-145)
[2021-03-26 13:05] LABS: Hepatitis B Surface Antibody Reactive; Hepatitis B Surface Antigen Non-Reactive (Nonreactive); Hepatitis C Antibody Non-Reactive (Nonreactive)
[2021-03-27 16:13] LABS: ANTINUCLEAR ANTIBODIES DIRECT Negative (Negative)
[2021-03-28 10:21] LABS: CCP IgG Antibodies 10 units (0-19)
== END ==
PROVIDERS: Internal Medicine Rheumatology; PCP Family Medicine; Referring Provider Family Medicine; Visit Provider Family Medicine
DX: R55 Syncope and collapse (principal); M06.4 Inflammatory polyarthropathy; M16.0 Bilateral primary osteoarthritis of hip; M47.892 Other spondylosis, cervical region; M50.30 Other cervical disc degeneration, unspecified cervical region; M21.41 Flat foot [pes planus] (acquired), right foot
CPT/HCPCS: 36415; 72170; 80053; 85025; 85652; 86038; 86140; 86200; 86431; 86706; 86803; 87340; 93225; 93226

== ENCOUNTER 2021-04-16 14:30 | Outpatient (RCR) | payer MEDICARE, SELFPAY ==
[2021-03-14 10:31] VITALS: BMI 29.3
--- NOTE | 2021-03-19 08:06 | HP.PTEVAL ---
Patient's Visit Information NOE MIRELES is a 80 year old M referred to Physical Therapy by CLARISA Chavez with a diagnosis of RTC Tendonosis with Biceps Tendonitis. Date of Evaluation: 03/19/21 Physical Therapist: Krys Thayer DPT - Visit Plan Frequency: 2x /Week Duration: 4 Weeks Plan: Focus on scapular s/s- postural awareness and modality of US. Latex Allergy. HEP Given IE: Postural education, scapular retractions, pec corner stretch, wall wash flexion and sidelying ER - Subjective Left shoulder has been bothering him for a long time. Saw Dr. Maya and then saw his PA- who put him on steroids so that is helping. Insidious onset- gradual- right shoulder first and then into the left. Pain is located on top of the joint and into the bicipital groove. Has had both an x-ray and an MRI. Showed bicipital tendon has fluid. Pain will radiate but not past the elbow. No neck pain. Does have some N/T but would go away if he moved his hands out of the position. Describes as dull and achy. Worst: 06/08 Agg: movement, possibly side sleeping. Eases: steroids (oral), Best: 09/08. Right hand dominate. Played golf yesterday- plays at least 1x a week- very little pain yesterday. Sleep: side sleeper- disturbed. 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 Work: [employer]- does do some lifting of trash. No MARIE, blurred vision, dizziness or MARIE. Works out at [employer]: 1-2x a week- works with Derrick on full body. PMHx/Meds: see ortho notes no changes. - Objective Posture: FH, RS, increased kyphosis- can correct with verbal and tactile cues but is unable to maintain. Gait: good arm swing and trunk rotation-posture continues to be poor with FH, RS. Palpation: not tender to touch. Observation: moderate winging of the scapula- poor scapular mobility. ROM: Cervical: WFL but all diminished by 25%, Shoulder: Flexion: 150 degrees Abd: 140 degrees, IR: to belt line, ER: 50 degrees Elbow/Wrist/Hand: WFL Finger dexterity: WFL. Strength: Scap: poor, Shoulder: 4/5 isometric in 90/90, Elbow: 4+/5, Wrist: 5/5, Fluid Power Mechanic: equal bilaterally. Sensation: WNL. Special Test: Spurlings: negative, Empty can: positive, Speeds: positive, Pandey: positive, Neer: positive - Goals Goal 1:: Patient will be I with HEP and progression Goal Time Frame: 4-6 Weeks Goal 2:: Patient will maintain proper posture t/o tx session to demo increased scap s/s Goal Time Frame: 4-6 Weeks Goal 3:: Patient will demo full AROM of the left shoulder without pain Goal Time Frame: 4-6 Weeks Goal 4:: Patient will report no pain with ADL's for 1 week Goal Time Frame: 4-6 Weeks - Rehabilitation Potential Physical Therapy Diagnosis: Patient presents with hypomobility- he has decreased painfree ROM, ue and scapular strength/stabilization and muscular endurance leading to poor posture and increased pain with ADL's. Rehabilitation Potential: Good - Anticipated Interventions Patient/Client Instruction: Educate patient on: Benefits of Fitness Program Therapeutic Exercise to Include: Strength training, Endurance training, Body mechanics, Postural training, Neuromotor development, Passive ROM, Active ROM, Dynamic Lumbar Stabilization, Scapular Strength/Stabilization For the Purpose of:: To improve muscle performance and motor function TENS: Yes Cryotherapy (ice pack, ice massage): Yes Thermo therapy (hot pack): Yes Ultrasound (thermal/non thermal): Yes Thank you for the opportunity to evaluate your patient. For Medicare and Medicare HMO plans, please review the plan of care and approve it. It will need to be FAXED BACK to us at [phone] for Medicare purposes. For Medicare only, by signing this I certify the plan of care. Please let me know if there are questions or concerns regarding this plan of care. Physician Signature: Date:
--- NOTE | 2021-04-16 15:06 | HP.PTREVAL ---
CLARISA Chavez, It has been my pleasure to treat NOE MIRELES over the last 9 visits for RTC Tendonosis with Biceps Tendonitis (Left mainly). Please see the progress note below for an update on the physical therapy plan of care! Subjective: I still have pain at this time. Pt reports no significant relief at this time. Objective/Function: L shoulder pain ranges from 5-9/10. L shoulder ROM: B shoulders are equal with exception to abd which is severely limited. Pt is able to perform most IADL's but with severe pain. Pt still has sleep difficulty secondary to pain Plan Plan: Discontinue, RTD Balance/Gait/Functional tests - Balance/Special Test Scores Quick DASH Score: 45.4525 Goals Goal 1:: Patient will be I with HEP and progression Goal Time Frame: 4-6 Weeks Goal Progress: Goal Met Goal 2:: Patient will maintain proper posture t/o tx session to demo increased scap s/s Goal Time Frame: 4-6 Weeks Goal Progress: Progressing Goal 3:: Patient will demo full AROM of the left shoulder without pain Goal Time Frame: 4-6 Weeks Goal Progress: Progressing Goal 4:: Patient will report no pain with ADL's for 1 week Goal Time Frame: 4-6 Weeks Goal Progress: Not Progressing Anticipated Interventions Patient/Client Instruction: Educate patient on: Benefits of Fitness Program Therapeutic Exercise to Include: Strength training, Endurance training, Body mechanics, Postural training, Neuromotor development, Passive ROM, Active ROM, Dynamic Lumbar Stabilization, Scapular Strength/Stabilization For the Purpose of:: To improve muscle performance and motor function TENS: Yes Cryotherapy (ice pack, ice massage): Yes Thermo therapy (hot pack): Yes Ultrasound (thermal/non thermal): Yes Please do not hesitate to contact me at [phone] by phone or if you have questions or concerns regarding this new plan of care! Sincerely, Pelon Moya, PT, ATC
--- NOTE | 2021-06-30 08:27 | HP.PTDCSUM ---
It has been my pleasure to treat NOE MIRELES referred by CLARISA Chavez, with the diagnosis of RTC Tendonosis with Biceps Tendonitis (Left mainly) for a total of 9 visit(s). Discharge Date: Please see the following information for a summary of their discharge status. Subjective: I still have pain at this time. Pt reports no significant relief at this time. Left Shoulder Pain Intensity (Out of 10): 5 % Improvement: 15 Objective/Function: L shoulder pain ranges from 5-9/10. L shoulder ROM: B shoulders are equal with exception to abd which is severely limited. Pt is able to perform most IADL's but with severe pain. Pt still has sleep difficulty secondary to pain Goal 1:: Patient will be I with HEP and progression Goal Progress: Goal Met Goal 2:: Patient will maintain proper posture t/o tx session to demo increased scap s/s Goal Progress: Progressing Goal 3:: Patient will demo full AROM of the left shoulder without pain Goal Progress: Progressing Goal 4:: Patient will report no pain with ADL's for 1 week Goal Progress: Not Progressing Plan: Discontinue, RTD If there are questions or concerns regarding this patient's physical therapy, please feel free to call me at [phone]. Thank you for the referral of this patient. Sincerely, Krys Thayer, JENNIFERT Balance/Gait/Functional tests - Balance/Special Test Scores Quick DASH Score: 45.4518
== END 2021-04-16 19:00 | disposition home or self-care (01) ==
LOC: PT 14:30
PROVIDERS: PCP Family Medicine; Referring Provider Physician Assistant; Visit Provider Physician Assistant
DX: M75.20 Bicipital tendinitis, unspecified shoulder (principal)
CPT/HCPCS: 97110; 97162; 97164

== ENCOUNTER → 2021-06-26 15:38 | Outpatient (CLI) | payer MEDICARE, SELFPAY ==
[2021-06-26 16:32] LABS: Absolute Lymphocyte Count 0.71 X10^3/uL (0.83-4.51); Absolute Neutrophil Count 6.6 X10^3/uL (2.0-7.7); Basophil# 0.04 X10^3/uL; Basophil% 0.5 % (0-1); Eosinophil# 0.25 X10^3/uL; Eosinophils% 2.8 % (0-5); Hematocrit 43.2 % (40-54); Hemoglobin 14.2 g/dL (13.0-16.5); Lymphocyte # 0.71 X10^3/ul (0.83-4.51); Lymphocyte % 8.1 % (19-41); Mean Corp Hgb Conc 32.9 g/dL (32-36); Mean Corpuscular Hgb 28.5 pg (27.0-32.0); Mean Corpuscular Volume 86.7 fL (80-94); Mean Platelet Vol. 10.2 fl (6.2-12.0); Monocyte# 1.22 X10^3/uL; Monocyte% 13.8 % (0-10); NRBC Flagged by Analyzer 0 % (0-5); Neutrophil # 6.55 X10^3/uL (2.7-7.7); Neutrophil % 74.3 % (47-70); Platelet Count 267 K/mm3 (150-450); RBC Distribution Width CV 14.2 % (11.6-14.6); RBC Distribution Width SD 45.3 fl (35.1-43.9); Red Blood Count 4.98 M/mm3 (4.6-6.2); White Blood Count 8.8 K/mm3 (4.4-11.0)
[2021-06-26 16:53] LABS: ALB/GLOB Ratio 0.8 RATIO (0.9-2.4); AST(SGOT) 21 U/L (15-37); Alanine Aminotransfer ALT/SGPT 21 U/L (16-61); Albumin, Serum 3.2 g/dL (3.2-5.0); Alkaline Phosphatase 111 U/L (45-117); Anion Gap 6 (5-15); BUN 17 mg/dL (7-18); BUN/Creat Ratio 15.6 RATIO (10-20); Calcium,Total 8.7 mg/dL (8.5-10.1); Chloride 102 mmol/L (98-107); Creatinine, Serum 1.09 mg/dL (0.70-1.30); EST Glomerular Filtration Rate 69 mL/min (>60); Est Glom Filt Rate - Afr Amer 84 mL/min (>60); Globulin 4.2 g/dL (2.2-4.2); Glucose 100 mg/dL (74-106); Potassium 4.5 mmol/L (3.5-5.1); Protein, Total 7.4 g/dL (6.4-8.2); Sodium Level 136 mmol/L (136-145)
== END ==
PROVIDERS: PCP Family Medicine; Referring Provider Physician Assistant; Visit Provider Physician Assistant
DX: Z01.818 Encounter for other preprocedural examination (principal); I10 Essential (primary) hypertension
CPT/HCPCS: 36415; 80053; 85025

== ENCOUNTER 2021-07-08 09:47 | Day surgery (SDC) | payer MEDICARE, SELFPAY ==
--- NOTE | 2021-07-02 10:54 | EKG12_ITS ---
Test Reason : PREOP Blood Pressure : / mmHG Vent. Rate : 067 BPM Atrial Rate : 067 BPM P-R Int : 192 ms QRS Dur : 080 ms QT Int : 378 ms P-R-T Axes : 004 -05 003 degrees QTc Int : 399 ms Normal sinus rhythm Inferior infarct , age undetermined, cannot be excluded Abnormal ECG Confirmed by ELI GIORDANO, BRETT ([id number]), index editor BLANCA GAMINO ([id number]) on 07/03/2021 9:01:40 AM Referred By: Alexandr Harrell Confirmed By:BRETT BENITEZ MD
[2021-07-08 10:11] VITALS: BP 155/79; PULSE 69; RESP 16; TEMP 36.3; O2SAT 97; BMI 30.2
[2021-07-08] MEDS: Lactated Ringers 1,000 ML 15 ML IV (10:16)
[2021-07-08] MEDS: Cefazolin 2 GM in 0.9% Normal Saline 100 ML IV (11:07)
[2021-07-08] MEDS: Epinephrine (1 mg/ml) 1 MG/ML VIAL ×2 (11:46)
[2021-07-08] MEDS: Lidocaine 1% /Epi 1:100 (20ml) 20 ML Vial (11:46)
[2021-07-08] MEDS: Bupivacaine Mpf 0.5% 30 ML VIAL (12:21)
--- NOTE | 2021-07-08 12:21 | HP.PCM_ITS ---
History and Physical Date of Admission: 07/08/21 Date of Service: 06/18/21 MR#:[id number]:[id number]: NOE MIRELES #:[id number] Provider:Dr. Alexandr Harrell DOAge/Sex: 80/M [facility] [place]:Signed with Addenda ADDENDUM by Dr. Alexandr Harrell DO on 06/18/21 at 1027 Assessment and Plan Assessment and Plan (1) Biceps tendinitis: Status: Acute Qualifiers: Laterality: left Qualified Code(s): M75.22 - Bicipital tendinitis, left shoulder (2) Impingement syndrome, shoulder, left: Status: Acute (3) Tendinitis of left rotator cuff: Status: Acute (4) Inflammatory polyarthropathy: Status: Acute Comment: Medical clearance in particular shoulder arthroscopy a beachchair is a hypotensive surgery and risk of stroke with blood pressure issues., Would like to make sure no carotid artery or other vascular concern. 06/18/21 1027<Electronically signed by Alexandr Harrell DO>Date Alexandr Harrell DO cc: Dr. Mike Sevilla, ~*Signed Intake Intake Visit Reasons: LEFT SHOULDER Chief Complaint: ER F/U Allergies latex Allergy (Intermediate, Verified 04/02/21 13:42) Bumps Medications aspirin 81 mg chewable tablet 81 mg PO DAILY@0800 #90 tab.chew 12/23/20 [Rx Confirmed 06/18/21] go shield vitamin c,zinc , elderberry gummies PO 03/14/21 [History Confirmed 06/18/21] melatonin 1 mg chewable tablet mg PO 03/14/21 [History Confirmed 06/18/21] nurtile twist tube 2 go PO 03/14/21 [History Confirmed 06/18/21] nurtilite joint health PO 03/14/21 [History Confirmed 06/18/21] rays for days gummies PO 03/14/21 [History Confirmed 06/18/21] losartan 50 mg tablet 50 mg PO DAILY #90 tab 03/20/21 [Rx Confirmed 06/18/21] prednisone 10 mg tablet 10 mg PO DAILY PRN 04/02/21 [History Confirmed 06/18/21] grape juice ml PO BID-TID 04/23/21 [History Confirmed 06/18/21] omeprazole magnesium 20 mg capsule,delayed release 20 mg PO DAILY PRN 04/23/21 [History Confirmed 06/18/21] oppszjyxtbg-pxh-ywuxagdzd-hrb 149-hyalur 500 mg-500 mg-66.7 mg tablet tab PO 06/18/21 [History Confirmed 06/18/21] omega-3 fatty acids 1,000 mg capsule 1,000 mg PO DAILY 06/18/21 [History Confirmed 06/18/21] [facility] Medical History (Updated 06/18/21 @ 10:[address] Alexandr Harrell DO) Arthritis Cataracts, bilateral GERD (gastroesophageal reflux disease) Prostate cancer Rheumatoid arthritis Seasonal allergies Surgical History History of cataract extraction History of hand surgery History of prostatectomy Family History Brother Arthritis Brother Arthritis Heart disease CVA (cerebral vascular accident) Mother Myocardial infarction Heart disease CVA (cerebral vascular accident) Father Kidney disease Social History Smoking Status: Never smoker alcohol intake: never substance use type: does not use frequency: 3-4 times per week HPI LEFT SHOULDER Details: Parts of this documentation were recorded by a scribe, this documentation accurately reflects the service provided and the decisions made by me, Dr. Alexandr Harrell DO 06/18/21 1071. NOE MIRELES is a 80 year old M here today for left shoulder pain follow-up, to recall patient has had subacromial injections in November and March was started on methotrexate for inflammatory polyarthropathy by Dr. Hauser in March but the patients states he did not take this medication because of the possible side effects. Patient states that the left subacromial was effective some day and other days his pain returns and this is random at times. He states that he was also given Prednisone by Dr. Su to take PRN. He states the ashish ulder is more bothersome when he lays on the left side. He does have numbness and tingling into the hand when he lays on this arm or when he reads the paper sometime with his elbow resting on a chair. He does have left sided neck pain and stiffness. He has had syncope episodes in the past not recently and was told this was from blood pressure drop. ROS Card Reports syncope Musc Reports arthralgias, Reports limited range of motion, Reports muscle weakness, Reports numbness and Reports radiating pain into limb Neuro Yes numbness and Yes syncope Ortho Exam General General: Yes no acute distress Neurologic: Yes alert and Yes oriented x3 Psychologic: Yes reasonable and appropriate Left Shoulder Skin/Wound: No ecchymosis, No erythema and No swelling Testing: No Hawkin's, No Neer's, Yes Speed's, Yes TTP Biceps, No TTP AC Joint and Yes belly press normal SHOULDER: mild biceps tenderness pain with abduction good resisted abduction strength with pain Supplemental Info 02/04/2021 MRI left shoulder: Mild rotator cuff tendinosis without tear AC joint arthritis. small joint effusion. 02/04/2021 MRI cervical spine: Mild multilevel degenerative changes 12/09/2020 x-ray right shoulder: Preserved joint space no acute findings 12/09/2020 x-ray left shoulder: Moderate AC joint arthrosis preserved glenohumeral joint space no acute findings 12/09/2020 x-ray cervical spine: Multilevel degenerative disc disease most significant C5-6, 6-7 Coding Level of Care Code Off vis,est,level 3 Diagnoses Biceps tendinitis M75.22 Laterality: left Impingement syndrome, shoulder, left M75.42 Tendinitis of left rotator cuff M75.82 Inflammatory polyarthropathy M06.4 Assessment and Plan Assessment and Plan (1) Biceps tendinitis: Status: Acute Qualifiers: Laterality: left Qualified Code(s): M75.22 - Bicipital tendinitis, left shoulder (2) Impingement syndrome, shoulder, left: Status: Acute (3) Tendinitis of left rotator cuff: Status: Acute (4) Inflammatory polyarthropathy: Status: Acute Plan - Dr. Alexandr Harrell, DO: Educated that he has inflammatory polyarthropathy for which he takes intermittent prednisone he refused methotrexate treatment recommended by senior health consultant, is worse complaints are his left chronic now shoulder pain he does have some anterior acromial spurring and signs of impingement which have had temporary relief with injections and therapy but symptoms continue to return. He has had bicipital pain in the past which seems to be improved currently , patient educated that his options at this time are a left shoulder arthroscopy for a subacromial decompression and possible biceps tenotomy. Educated that if he does have a left shoulder scope then he can still have the cervical pain and numbness of the hand and may still have some shoulder pain from the cervical spine. Reviewed the pre-operative plans with the patient. Risks and benefits of the procedure were fully explained, including but not limited to infection, neurovascular injury, continued pain, arthritis, stiffness, need for further surgery, re-injury, DVT, PE, general risks of anesthesia, and loss of limb or life. The patient understands all the risks and does wish to proceed with written consent. He will need surgical clearance from his PCP d/t his hx of syncope episodes. Educated that he will not be able to swim for 3 weeks post op. No limitation at this time for PT. Follow up 2 weeks post op or sooner if pain, swelling, numbness or associated symptoms, or concerns develop. All questions answered. Patient in agreement of plan. 06/18/21 1026<Electronically signed by Alexandr Harrell DO>Date Alexandr Harrell DO Cosigner Signature:Date (if applicable) CC: Dr. Mike Sevilla, DO ~I have re-examined the patient. There are no clinical changes since date of exam
--- NOTE | 2021-07-08 12:21 | PCM.OPRPT ---
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 risks benefits and alternatives of the procedure were reviewed including risk of bleeding infection nerve artery tissue damage need for further surgery continued pain postoperative stiffness and need for postoperative physical therapy and continued pain. Procedure : Patient was met in the preoperative holding area the operative extremity was identified by both the patient and the physician and was marked. Patient was met by anesthesia and brought back to the operating room on a wheeled cart. She was transferred to the operating table in the supine position. Anesthesia was started. Patient was then positioned in the beachchair configuration. Bony prominences were well-padded. The patient was prepped and draped in the usual sterile fashion. A timeout was called to ensure the proper patient procedure and extremity were being contemplated. Anatomic landmarks were palpated and marked with a marking pen. A 0.25% Marcaine with epinephrine was injected into the planned portal sites. An 11 blade scalpel was used to make a stab incision in the posterior lateral portal. Arthroscope was inserted into the glenohumeral space with ease. Inflow and outflow tubes were attached and arthroscopic visualization began. An anterior portal was established with an 18-gauge spinal needle. Immediately there is noted be degenerative labral tearing throughout the labrum circumferentially with some detachment anterior superiorly there was also noted to be lipstick lesion of the biceps tendon in the sling rotator cuff was intact with only some mild degenerative tearing of the upper border of the subscapularis with the use of an ArthroCare wand and a shaver labral debridement and biceps tenotomy was performed the arthroscope was then repositioned into the subacromial space there was significant bursal thickening of acromial decompression of bursal tissue as well as acromioplasty were performed there some anterior acromial spurring and some inferior osteophytes off the AC joint which was removed bursal side of the cuff was evaluated and there was no full-thickness tear seen or palpated with probe probe the wound was thoroughly irrigated through the scope followed by a subacromial injection with 40 mg Depo-Medrol 4 mg of morphine and 5 cc of 0.5% Marcaine plain. Suture portals were closed with 3-0 nylon arthroscopic stitches followed by Xeroform 4 x 4 ABD and a Ioban dressing. A regular sling was placed. Anesthesia was reversed and patient tolerated the procedure well was and was transferred to the PACU all counts were correct patient will follow-up in the office in 2 weeks patient may begin active range of motion immediately
[2021-07-08] MEDS: MethylPREDNISolone Acetate 40 MG/ML Vial IM (12:22)
--- NOTE | 2021-07-08 12:24 | EX.PCM.DISCH ---
Discharge Instructions Dressing / Incision Additional Dressing/Incision Instructions:: Leave the dressing on and intact for 48 hours. Then may remove and shower with warm water and antibacterial soap. But do not submerge in tub for 3 weeks. ice shoulder 15 min on and 15 mins off next 72 hrs. May remove sling for elbow range of motion and pendulum exercises may preform active range of motion of shoulder when pain allows. discontinue sling over the course to the week as pain allow. DC completely by 1 week. Do not lift push or pull greater then 5 lbs with operative extremity. Encourage finger and wrist range of motion. If any concerns call Dr. Harrell's office. Follow Up Care Please Follow Up With: Alexandr Harrell DO When: 2 weeks Test Results: Test results from this visit will be discussed in further detail at your follow-up appointment, if applicable. Discharge Plan Admission Primary Reason for Your Visit: Left shoulder surgery Attending Provider: Alexandr Harrell Primary Care Provider: Mike Sevilla Discharge Orders/Prescriptions Prescriptions: New oxycodone 5 mg tablet 5 - 10 mg PO Q4H PRN (Reason: pain) 4 Days Qty: 30 RF: 0 No Action go shield vitamin c,zinc , elderberry gummies 2 tab PO DAILY RF: 0 rays for days gummies 1 caplet PO DAILY RF: 0 melatonin 1 mg tablet,chewable 2 mg PO QHS RF: 0 nurtile twist tube 2 go 9 oz PO PRN PRN (Reason: JOINT PAIN) RF: 0 omeprazole magnesium [[employer] (omeprazole)] 20 mg capsule,delayed release(DR/EC) 20 mg PO DAILY PRN (Reason: Indigestion) RF: 0 losartan 50 mg tablet 50 mg PO DAILY Qty: 90 RF: 3 prednisone 10 mg tablet 10 mg PO DAILY PRN (Reason: RA FLARE) RF: 0 grape juice Liquid 3 ml PO BID-TID RF: 0 omega-3 fatty acids [Fish Oil Concentrate] 1,000 mg capsule 1,000 mg PO DAILY RF: 0 armtdxbx-vis-qbkwt-qkb271-ybdy [Hnqbof-Vsvig-WJQ (with antiox)] 500-500-66.7 mg tablet 1 tab PO BID RF: 0 ache no more 1 % topical DAILY RF: 0 aspirin 81 mg tablet,chewable 81 mg PO DAILY@0800 Qty: 90 RF: 3 Other Ambulatory Orders: 12 Lead EKG (Routine) Timeframe: [id number] Location: None Selected Ordered By: Dr. Magdy Suarez Referrals / Follow Up: Mike Sevilla DO [Primary Care Provider] - Disposition Disposition (needs filled in before D/C Order can be placed): Home, Self Care
[2021-07-08 12:50] VITALS: BP 135/77; BP 155/79; PULSE 72; RESP 16; TEMP 36; O2SAT 100
[2021-07-08 13:00] VITALS: BP 138/75; BP 155/79; PULSE 65; RESP 16; O2SAT 100
[2021-07-08 13:15] VITALS: BP 133/74; BP 155/79; PULSE 68; RESP 16; O2SAT 0
[2021-07-08 13:41] VITALS: BP 132/75; BP 155/79; PULSE 67; RESP 14; TEMP 36.1; O2SAT 94
[2021-07-08 14:30] VITALS: BP 155/79
== END 2021-07-08 15:12 | disposition home or self-care (01) ==
LOC: SDC 09:50 → AC 09:50
PROVIDERS: PCP Family Medicine; Referring Provider Orthopaedic Surgery; Visit Provider Orthopaedic Surgery
PROC: (CPT 29827; principal; 2021-07-08 10:50)
DX: M75.22 Bicipital tendinitis, left shoulder (principal); M94.212 Chondromalacia, left shoulder; M25.812 Other specified joint disorders, left shoulder; M75.42 Impingement syndrome of left shoulder; M06.4 Inflammatory polyarthropathy; K21.9 Gastro-esophageal reflux disease without esophagitis; M06.9 Rheumatoid arthritis, unspecified; Z79.899 Other long term (current) drug therapy; Z79.82 Long term (current) use of aspirin
CPT/HCPCS: 01716; 29826; 29828; 64415; 93005; J7120; J2405

== ENCOUNTER 2021-08-15 08:00 | Outpatient (RCR) | payer MEDICARE, SELFPAY ==
--- NOTE | 2021-07-23 08:46 | HP.PTEVAL ---
Patient's Visit Information NOE MIRELES is a 80 year old M referred to Physical Therapy by CLARISA Chavez with a diagnosis of 07/08/21 Left Shoulder Scope, labral debridement, Biceps Tenotomy. Date of Evaluation: 07/23/21 Physical Therapist: Krys Thayer DPT - Visit Plan Frequency: 3x /Week Duration: 3 Weeks Plan: Shoulder surgery 07/08- lifting restriction of up to #10- focus on ROM and UE and scapular s/s (Latex Allergy). HEP Given IE: Posture Education, Post Shoulder Rolls, Std Cane Flexion, Std Cane Abd, Flexion wall wash - Subjective Patient reports that he had left shoulder surgery (scope, labral debridement, biceps tenotomy). Insidious onset- no trauma. He is feeling a lot better. Worst: 1-2/10 sleeping on the left shoulder he has pain on/off throughout the day. Best: 0/10 Eases: moving it to a different position. He was in a sling for a few days but he has not been wearing it for about a week. Pain is located in the anterior shoulder- both dull and achy and sharp/shooting. No neck pain. Does have some discomfort into the biceps. No changes in imcu nurse strength/finger dexterity. Right hand dominate. Limited to 5-10# on that shoulder. Sleep: no change in his pattern- side sleeper. He feels that he is 80% back to all normal. He is fairly active- works out at and would like to get back to his routine. No MARIE, blurred vision or dizziness. Workout routine- mostly machines- TM. No x-rays or MRI since prior to surgery. PMHx/Meds: no changes since surgery. - Objective Posture: FH, RS, increased kyphosis- can correct with verbal and tactile cues but is unable to maintain. Gait: good arm swing and trunk rotation-posture continues to be poor with FH, RS. Palpation: tender along bicipital groove. Observation: moderate winging due poor scapular mobility. ROM: Cervical: WFL but all diminished by 25%, Shoulder: AROM: Flexion: 120 degrees, Abd: 120 degrees, IR: belt line above pocket, ER: 60 degrees PROM guarded unable to get good measurements Elbow/Wrist/Hand: WFL Finger dexterity: WFL. Strength: Scap: poor, Shoulder: 4/5 isometric in 90/90, Elbow: 4+/5, Wrist: 5/5, Electric Lift Truck Driver: Electric Lift Truck Driver: Left: 20 (artificial knuckle) Right: 25. Sensation: WNL. Special Test: Spurlings: negative, Empty can: positive, Speeds: positive, Pandey: positive, Neer: positive - Balance/Special Test Scores Quick DASH Score: 45.4525 - Goals Goal 1:: Patient will be I with HEP and progressoin Goal Time Frame: 4-6 Weeks Goal 2:: Patient will demo full AROM with 0/10 pain in the left shoulder Goal Time Frame: 4-6 Weeks Goal 3:: Patient will maintain proper posture t/o tx session to demo increased scap s/s Goal Time Frame: 4-6 Weeks Goal 4:: Patient will report return to all normal ADL's and recreational activities without pain Goal Time Frame: 4-6 Weeks - Rehabilitation Potential Physical Therapy Diagnosis: Patient presents with hypomobility s/p 07/08/21 Left Shoulder Scope, labral debridement, Biceps Tenotomy- he has decreased pain free ROM, UE and scapular strength/stabilization and muscular endurance leading to poor posture and increased pain with ADL's. Rehabilitation Potential: Good - Anticipated Interventions Patient/Client Instruction: Educate patient on: Benefits of Fitness Program Therapeutic Exercise to Include: Strength training, Endurance training, Body mechanics, Postural training, Flexibilty training, Neuromotor development, Passive ROM, Active ROM, Scapular Strength/Stabilization For the Purpose of:: To improve muscle performance and motor function TENS: Yes Cryotherapy (ice pack, ice massage): Yes Thermo therapy (hot pack): Yes Ultrasound (thermal/non thermal): No For the Purpose of:: To decrease pain Thank you for the opportunity to evaluate your patient. For Medicare and Medicare HMO plans, please review the plan of care and approve it. It will need to be FAXED BACK to us at [phone] for Medicare purposes. For Medicare only, by signing this I certify the plan of care. Please let me know if there are questions or concerns regarding this plan of care. Physician Signature: Date:
--- NOTE | 2021-08-15 08:16 | HP.PTREVAL ---
CLARISA Chavez, It has been my pleasure to treat NOE MIRELES over the last 11 visits for 07/08/21 Left Shoulder Scope, labral debridement, Biceps Tenotomy. Please see the progress note below for an update on the physical therapy plan of care! Subjective: Patient reports that every now and then he has a shooting pain but he is really happy with the progress. The pain is located up on the top and can radiate down the biceps- the pain comes and goes. Sleep: does not limit but he has some soreness if he sleeps on the left shoulder. He is able to perform all of his ADL's. Is not back to golf yet but does feel that he can. Objective/Function: Posture: FH, RS, increased kyphosis- can correct and maintain- much improved Gait: good arm swing and trunk rotation Palpation: not tender. ROM: Shoulder: AROM: Flexion: 170 degrees, Abd: 170 degrees, IR: belt line above pocket, ER: 60 degrees Elbow/Wrist/Hand: WFL Finger dexterity: WFL. Strength: Scap: fair plus, Shoulder: 4+/5 Elbow: 5/5, Wrist: 5/5, Sensation: WNL. Special Test,: Spurlings: negative, Empty can: positive, Speeds: positive, Pandey: positive, Neer: positive Plan Plan: Return to MD for further evaluation and possible return to sport progression- continue home exercise program- if MD is okay will discharge from PT- if he would recommend can do some sport specific golf activities. Balance/Gait/Functional tests - Balance/Special Test Scores Quick DASH Score: 45.4525 Goals Goal 1:: Patient will be I with HEP and progressoin Goal Time Frame: 4-6 Weeks Goal Progress: Goal Met Goal 2:: Patient will demo full AROM with 0/10 pain in the left shoulder Goal Time Frame: 4-6 Weeks Goal Progress: Goal Met Goal 3:: Patient will maintain proper posture t/o tx session to demo increased scap s/s Goal Time Frame: 4-6 Weeks Goal Progress: Progressing Goal 4:: Patient will report return to all normal ADL's and recreational activities without pain Goal Time Frame: 4-6 Weeks Goal Progress: Progressing Anticipated Interventions Patient/Client Instruction: Educate patient on: Benefits of Fitness Program Therapeutic Exercise to Include: Strength training, Endurance training, Body mechanics, Postural training, Flexibilty training, Neuromotor development, Passive ROM, Active ROM, Scapular Strength/Stabilization For the Purpose of:: To improve muscle performance and motor function TENS: Yes Cryotherapy (ice pack, ice massage): Yes Thermo therapy (hot pack): Yes Ultrasound (thermal/non thermal): No For the Purpose of:: To decrease pain Please do not hesitate to contact me at [phone] by phone or if you have questions or concerns regarding this new plan of care! Sincerely, JENNIFER MckinneyT
--- NOTE | 2021-09-29 11:51 | HP.PT.NRP ---
NOE MIRELES was seen in my office for initial evaluation on 07/23/21. The following Plan of Care was established for this patient: Initial Frequency: 3x /Week Initial Duration: 3 Weeks Patient/Client Instruction: Educate patient on: Benefits of Fitness Program Therapeutic Exercise to Include: Strength training, Endurance training, Body mechanics, Postural training, Flexibilty training, Neuromotor development, Passive ROM, Active ROM, Scapular Strength/Stabilization For the Purpose of:: To improve muscle performance and motor function TENS: Yes Cryotherapy (ice pack, ice massage): Yes Thermo therapy (hot pack): Yes Ultrasound (thermal/non thermal): No For the Purpose of:: To decrease pain This patient was last seen in our office . Pertinent comments regarding their Physical therapy will appear below: At this point I will be discontinuing this patient from physical therapy. I would be happy to see this patient again in the future if found appropriate by the physician. Thank you! Krys Thayer, DPT Balance/Gait/Functional tests - Balance/Special Test Scores Quick DASH Score: 13.6350
== END 2021-08-15 19:00 | disposition home or self-care (01) ==
LOC: PT 08:00
PROVIDERS: PCP Family Medicine; Referring Provider Physician Assistant; Visit Provider Physician Assistant
DX: Z47.89 Encounter for other orthopedic aftercare (principal)
CPT/HCPCS: 97110; 97161; 97164

== ENCOUNTER 2021-09-26 11:41 | Outpatient (CLI) | payer MEDICARE, SELFPAY ==
[2021-09-26 15:21] LABS: Absolute Lymphocyte Count 1.62 X10^3/uL (0.83-4.51); Absolute Neutrophil Count 7.3 X10^3/uL (2.0-7.7); Basophil# 0.04 X10^3/uL; Basophil% 0.4 % (0-1); Eosinophil# 0.49 X10^3/uL; Eosinophils% 4.6 % (0-5); Hematocrit 41.7 % (40-54); Hemoglobin 13.9 g/dL (13.0-16.5); Lymphocyte # 1.62 X10^3/ul (0.83-4.51); Lymphocyte % 15.1 % (19-41); Mean Corp Hgb Conc 33.3 g/dL (32-36); Mean Corpuscular Hgb 28.5 pg (27.0-32.0); Mean Corpuscular Volume 85.5 fL (80-94); Mean Platelet Vol. 11.2 fl (6.2-12.0); Monocyte# 1.22 X10^3/uL; Monocyte% 11.4 % (0-10); NRBC Flagged by Analyzer 0 % (0-5); Neutrophil # 7.31 X10^3/uL (2.7-7.7); Platelet Count 232 K/mm3 (150-450); RBC Distribution Width SD 46.8 fl (35.1-43.9); Red Blood Count 4.88 M/mm3 (4.6-6.2); White Blood Count 10.7 K/mm3 (4.4-11.0)
[2021-09-26 15:37] LABS: ALB/GLOB Ratio 0.9 RATIO (0.9-2.4); AST(SGOT) 20 U/L (15-37); Alanine Aminotransfer ALT/SGPT 15 U/L (16-61); Albumin, Serum 3.3 g/dL (3.2-5.0); Alkaline Phosphatase 108 U/L (45-117); Anion Gap 5 (5-15); BUN 23 mg/dL (7-18); BUN/Creat Ratio 21.3 RATIO (10-20); Calcium,Total 9.1 mg/dL (8.5-10.1); Chloride 105 mmol/L (98-107); Creatinine, Serum 1.08 mg/dL (0.70-1.30); EST Glomerular Filtration Rate 70 mL/min (>60); Est Glom Filt Rate - Afr Amer 85 mL/min (>60); Globulin 3.6 g/dL (2.2-4.2); Glucose 82 mg/dL (74-106); Protein, Total 6.9 g/dL (6.4-8.2); Sodium Level 138 mmol/L (136-145)
== END 2021-09-26 23:59 | disposition short-term general hospital (02) ==
LOC: MTLAB 11:42
PROVIDERS: PCP Family Medicine; Referring Provider Internal Medicine Rheumatology; Visit Provider Internal Medicine Rheumatology
DX: M06.4 Inflammatory polyarthropathy (principal); M16.0 Bilateral primary osteoarthritis of hip; M47.892 Other spondylosis, cervical region; M50.30 Other cervical disc degeneration, unspecified cervical region; M21.41 Flat foot [pes planus] (acquired), right foot; I10 Essential (primary) hypertension; K21.9 Gastro-esophageal reflux disease without esophagitis; Z85.46 Personal history of malignant neoplasm of prostate
CPT/HCPCS: 36415; 80053; 85025

== ENCOUNTER 2021-10-08 11:03 | Outpatient (CLI) | payer MEDICARE, SELFPAY ==
[2021-10-08 11:11] LABS: Mucous, Urine 0 SEEN /hpf (<or=2+); White Blood Cells 0 SEEN /hpf (0-5)
--- NOTE | 2021-10-08 11:53 | RAD_ITS ---
STUDY: X-RAY - LEFT FOOT CLINICAL: Male, 80 years old. left heel pain, more painful the more pt walks TECHNIQUE: 2 view(s) of the foot. COMPARISON: None. FINDINGS: Normal talus, calcaneus, and tarsal bones.Tiny plantar calcaneal spur noted. Normal visualized subtalar, talonavicular, calcaneocuboid, tarsal and tarsometatarsal articulations. Normal metatarsi. Normal metatarsophalangeal joint of the great toe. Normal tibial and fibular sesamoid bones. Normal interphalangeal joint of the great toe. Normal phalanges of the great toe. Normal second through fifth metatarsophalangeal joints. Normal interphalangeal joints and phalanges of the lesser toes. The soft tissue structures are unremarkable. There is no demonstrated fracture. RAD/Foot 2 Views IMPRESSION: 1. Tiny plantar calcaneal spur Electronically Signed: Joey Lake MD at 16:36 EST ,
[2021-10-08 12:22] LABS: Color, Urine Yellow (Yellow); Glucose, Dipstick Normal (Normal); Ketone-Dipstick Negative (Negative); Leukocyte Esterase-Dipstick Negative /ul (Negative); Nitrite-Dipstick Negative (Negative); Occult Blood-Urine Negative /ul (Negative); Protein-Dipstick Negative (Negative); Urine Bilirubin Dipstick Negative (Negative); Urine Clarity Sl. Cloudy (Clear); Urine Urobilinogen Normal (Normal)
[2021-10-08 12:31] LABS: Bacteria RARE /hpf (None Seen); Red Blood Cells-Urine 0-5 SEEN /hpf (0-5); Squamous Epithelial Cells - UA 0-5 SEEN /hpf (0-5)
== END 2021-10-08 23:59 | disposition home or self-care (01) ==
PROVIDERS: PCP Family Medicine; Referring Provider Family Medicine; Visit Provider Family Medicine
DX: I10 Essential (primary) hypertension (principal); M72.2 Plantar fascial fibromatosis
CPT/HCPCS: 73620; 81001

== ENCOUNTER → 2022-05-06 | Outpatient (CLI) | payer MEDICARE, SELFPAY ==
--- NOTE | 2022-05-06 14:10 | RAD_ITS ---
EXAM: XR LEFT HIP WITH PELVIS WHEN PERFORMED, 2 OR 3 VIEWS CLINICAL INDICATION: hip pain TECHNIQUE: Two or three views of the left hip with pelvis when performed. This report was created using [employer] report generation technology. COMPARISON: None. FINDINGS: BONES/JOINTS: Unremarkable. No displaced fracture. No destructive or sclerotic lesions. Note that overlapping bowel shadows may however obscure fine detail. Sacroiliac joint is unremarkable. No widening of the pubic symphysis. The articular structures are unremarkable. SOFT TISSUES: Unremarkable. No soft tissue swelling or gas. RAD/HIP, UNI W/ Pelvis 2-3 Views IMPRESSION: No evidence of displaced pelvic or hip fracture. Electronically Signed: Savage Segovia MD at 17:47 EDT ,
== END | disposition home or self-care (01) ==
PROVIDERS: PCP Family Medicine; Referring Provider Family Medicine; Visit Provider Family Medicine
DX: M25.552 Pain in left hip (principal)
CPT/HCPCS: 73502

== ENCOUNTER → 2022-08-20 | Outpatient (CLI) | payer MEDICARE, SELFPAY ==
[2022-08-20 12:19] LABS: Absolute Lymphocyte Count 1.02 X10^3/uL (0.83-4.51); Absolute Neutrophil Count 4.6 X10^3/uL (2.0-7.7); Basophil# 0.03 X10^3/uL; Basophil% 0.4 % (0-1); Eosinophil# 0.18 X10^3/uL; Eosinophils% 2.7 % (0-5); Hematocrit 45.7 % (40-54); Lymphocyte # 1.02 X10^3/ul (0.83-4.51); Mean Corp Hgb Conc 32.8 g/dL (32-36); Mean Corpuscular Hgb 29.6 pg (27.0-32.0); Mean Corpuscular Volume 90.1 fL (80-94); Mean Platelet Vol. 11.4 fl (6.2-12.0); Monocyte# 0.94 X10^3/uL; Monocyte% 13.8 % (0-10); NRBC Flagged by Analyzer 0 % (0-5); Neutrophil # 4.59 X10^3/uL (2.7-7.7); Neutrophil % 67.7 % (47-70); Platelet Count 229 K/mm3 (150-450); RBC Distribution Width CV 14.8 % (11.6-14.6); RBC Distribution Width SD 49.1 fl (35.1-43.9); Red Blood Count 5.07 M/mm3 (4.6-6.2); White Blood Count 6.8 K/mm3 (4.4-11.0)
[2022-08-20 12:40] LABS: AST(SGOT) 20 U/L (15-37); Alanine Aminotransfer ALT/SGPT 21 U/L (16-61); Albumin, Serum 3.4 g/dL (3.2-5.0); Alkaline Phosphatase 96 U/L (45-117); Anion Gap 7 (5-15); BUN 23 mg/dL (7-18); BUN/Creat Ratio 18.5 RATIO (10-20); Calcium,Total 8.9 mg/dL (8.5-10.1); Chloride 106 mmol/L (98-107); Cholesterol 168 mg/dL (200); Creatinine, Serum 1.24 mg/dL (0.70-1.30); EST Glomerular Filtration Rate 60 mL/min (>60); Est Glom Filt Rate - Afr Amer 72 mL/min (>60); Globulin 3.4 g/dL (2.2-4.2); Glucose 99 mg/dL (74-106); High Density Lipoprotein 50 mg/dL; Potassium 4.1 mmol/L (3.5-5.1); Protein, Total 6.8 g/dL (6.4-8.2); Sodium Level 140 mmol/L (136-145); Triglycerides 65 mg/dL; Very Low Density Lipoprotein 13 mg/dL (5-40)
== END | disposition home or self-care (01) ==
LOC: BIMLAB 10:35
PROVIDERS: PCP Family Medicine; Referring Provider Family Medicine; Visit Provider Family Medicine
DX: I10 Essential (primary) hypertension (principal); Z86.010 Personal history of colon polyps
CPT/HCPCS: 36415; 80053; 80061; 85025

== ENCOUNTER → 2022-10-14 | Outpatient (CLI) | payer MEDICARE, SELFPAY ==
[2022-10-14 13:18] LABS: PSA,Total- Diagnostic 0.01 ng/mL (0.0-4.0)
== END | disposition home or self-care (01) ==
LOC: BIMLAB 09:02
PROVIDERS: PCP Family Medicine; Referring Provider Family Medicine; Visit Provider Family Medicine
DX: C61 Malignant neoplasm of prostate (principal)
CPT/HCPCS: 36415; 84153

== ENCOUNTER → 2023-10-19 | Outpatient (CLI) | payer MEDICARE, SELFPAY ==
[2023-10-19 12:17] LABS: Absolute Lymphocyte Count 1.08 X10^3/uL (0.83-4.51); Absolute Neutrophil Count 3.4 X10^3/uL (2.0-7.7); Basophil# 0.05 X10^3/uL; Basophil% 0.9 % (0-1); Eosinophil# 0.46 X10^3/uL; Eosinophils% 7.8 % (0-5); Hematocrit 45.7 % (40-54); Hemoglobin 14.9 g/dL (13.0-16.5); Lymphocyte # 1.08 X10^3/ul (0.83-4.51); Lymphocyte % 18.4 % (19-41); Mean Corp Hgb Conc 32.6 g/dL (32-36); Mean Corpuscular Hgb 28.8 pg (27.0-32.0); Mean Corpuscular Volume 88.4 fL (80-94); Mean Platelet Vol. 11.3 fl (6.2-12.0); Monocyte# 0.92 X10^3/uL; Monocyte% 15.6 % (0-10); NRBC Flagged by Analyzer 0 % (0-5); Neutrophil # 3.36 X10^3/uL (2.7-7.7); Neutrophil % 57.1 % (47-70); Platelet Count 222 K/mm3 (150-450); RBC Distribution Width CV 14.4 % (11.6-14.6); RBC Distribution Width SD 46.4 fl (35.1-43.9); Red Blood Count 5.17 M/mm3 (4.6-6.2); White Blood Count 5.9 K/mm3 (4.4-11.0)
[2023-10-19 12:24] LABS: ALB/GLOB Ratio 0.9 RATIO (0.9-2.4); AST(SGOT) 24 U/L (15-37); Alanine Aminotransfer ALT/SGPT 19 U/L (16-61); Albumin, Serum 3.3 g/dL (3.2-5.0); Alkaline Phosphatase 124 U/L (45-117); Anion Gap 5 (5-15); BUN 14 mg/dL (7-18); BUN/Creat Ratio 11.1 RATIO (10-20); Chloride 107 mmol/L (98-107); Cholesterol 156 mg/dL (200); Creatinine, Serum 1.26 mg/dL (0.70-1.30); EST Glomerular Filtration Rate 58 mL/min (>60); Est Glom Filt Rate - Afr Amer 71 mL/min (>60); Globulin 3.6 g/dL (2.2-4.2); Glucose 89 mg/dL (74-106); High Density Lipoprotein 42 mg/dL; Potassium 4.3 mmol/L (3.5-5.1); Protein, Total 6.9 g/dL (6.4-8.2); Sodium Level 141 mmol/L (136-145); Triglycerides 89 mg/dL; Very Low Density Lipoprotein 18 mg/dL (5-40)
== END | disposition home or self-care (01) ==
LOC: BIMLAB 09:06
PROVIDERS: PCP Family Medicine; Visit Provider Family Medicine
DX: Z86.010 Personal history of colon polyps (principal); I10 Essential (primary) hypertension
CPT/HCPCS: 36415; 80053; 80061; 85025

== ENCOUNTER 2024-01-11 05:33 | Day surgery (SDC) | payer MEDICARE, SELFPAY ==
--- NOTE | 2024-01-10 | COLBX_PTH ---
PATIENT: NOE MIRELES LOC: EN U#:[id number] AGE/SX: 83/M ROOM: RE01/11/[address]: Dr. Robel Vega MD : 1940 BED: DIS: 01/11/2024 SPEC #: [id number] RECD: 01/11/24 11:04 STATUS: EMANUEL MORRISLeonor #: [id number] NATALEE: 01/10/24 00:[address]: Robel Vega DEPT: SURGICAL PATHOLOGY RECD BY: Pablo Hoover ENTERED: 01/11/24 11:04 SP TYPE: COLON BX ASHLEY DR: Dr. Mike Sevilla, DO Tissues: A - Sigmoid colon biopsy B - Sigmoid colon biopsy Procedures: Surgery Specimen Level IV HEADER OPERATION: Colonoscopy biopsy PRE-OP DIAGNOSIS: Personal history of colonic polyps TISSUE SUBMITTED: A- Mid sigmoid polyp biopsy, B- Distal sigmoid polyp biopsy MICROSCOPIC DIAGNOSIS A. Mid sigmoid polyps x2, biopsy: Fragments of hyperplastic polyp. B. Distal sigmoid polyp, biopsy: Hyperplastic polyp. [facility] 01/12/24 MICROSCOPIC DESCRIPTION Slides are reviewed. GROSS DESCRIPTION A. Received in fixative is one container labeled with the patient's name and designated Mid sigmoid polyp biopsy. The specimen consists of two irregular fragments of light locke soft tissue that in aggregate measure 0.6 x 0.3 x 0.1 cm. The specimen is totally submitted in one cassette. B. Received in fixative is one container labeled with the patient's name and designated Distal sigmoid polyp biopsy. The specimen consists of one irregular fragment of light locke soft tissue that measures 0.3 x 0.3 x 0.1 cm. The specimen is totally submitted in one cassette. [facility] 01/11/24 TC:1 CPT:36719c6
--- NOTE | 2024-01-11 05:39 | HP.PCM_ITS ---
History and Physical Date of Admission: 01/11/24 Visit Reasons: COLONOSCOPY-HX OF POLYPS Chief Complaint: C-Scope consult Roller Maker Required: No Is patient in pain?: No Allergies latex Allergy (Intermediate, Verified 12/27/23 13:14) Bumps Medications go shield vitamin c,zinc , elderberry gummies 2 tab PO DAILY 03/14/21 [History Confirmed 12/27/23] nurtile twist tube 2 go 9 oz PO PRN PRN JOINT PAIN 03/14/21 [History Confirmed 12/27/23] rays for days gummies 1 caplet PO DAILY 03/14/21 [History Confirmed 12/27/23] grape juice 3 ml PO BID-TID 04/23/21 [History Confirmed 12/27/23] acetaminophen 500 mg tablet (Tylenol Extra Strength) 500 mg PO Q6H PRN 10/08/21 [History Confirmed 12/27/23] tadalafil 20 mg tablet (Cialis) 20 mg PO DAILY PRN sexual activity #7 tabs 10/14/22 [Rx Confirmed 12/27/23] diclofenac potassium 50 mg tablet 50 mg PO TID #30 tabs 03/24/23 [Rx Confirmed 12/27/23] losartan 50 mg tablet 50 mg PO DAILY #90 tabs 06/03/23 [Rx Confirmed 12/27/23] melatonin 3 mg-C 45 mg-D3 12.5 mcg-zinc 3.75 mg-elder chewable tablet (Sleep Immune Health) tab PO 06/03/23 [History Confirmed 12/27/23] vardenafil 20 mg tablet 20 mg PO DAILY #7 tabs 10/19/23 [Rx Confirmed 12/27/23] omeprazole magnesium 20 mg capsule,delayed release (Acid Solution Design And Analysis Manager (omeprazole)) 20 mg PO DAILY PRN Indigestion #90 caps 12/24/23 [Rx Confirmed 12/27/23] PFSH Medical History (Updated 12/27/23 @ 05:[address] Robel Vega MD) Arthritis Back pain Cancer Cataracts, bilateral Flu vaccine need GERD (gastroesophageal reflux disease) Heartburn History of echocardiogram History of hiatal hernia History of Holter monitoring History of pain when walking History of steroid therapy History of stress test Hypertension Leg cramps Non-smoker Personal history of colonic polyps Prostate cancer Rheumatoid arthritis Rheumatoid arthritis Seasonal allergies Wears glasses Wears partial dentures Surgical History (Updated 12/27/23 @ 13:13 by Gina Dempsey) History of cataract extraction History of hand surgery History of prostatectomy Hx of colonoscopy Hx of shoulder surgery Family History Brother ArthritisBrother Arthritis Heart disease CVA (cerebral vascular accident)Mother Myocardial infarction Heart disease CVA (cerebral vascular accident)Father Kidney disease Social History (Updated 10/19/23 @ 08:29 by Leigh Ann Concepcion MA) household members: spouse current occupational status: employed current occupation: Works department sales manager at the [employer] Smoking Status: Never smoker alcohol intake: never substance use type: does not use frequency: 3-4 times per week HPI HPI HPI: 83-year-old gentleman is being referred by Dr. Srinivas Sevilla for surgical consultation regarding surveillance colonoscopy as the patient has a personal history of colon polyps and a written compromise surgical consult recommendations will return to him. I have previously assisted him on November 09, 2017 with a colonoscopy. He had pancolonic diverticulosis and a small polyp of the rectum. His previous colonoscopy was 9 years prior to that. Pathology demonstrated hyperplastic polyp. The patient states that he had a remote colonoscopy prior to that with polyps removed as well. Other than being told they were benign he does not know whether they were adenomatous. We tried to look back through clinisync to see if we could find previous pathology and was not able to. He is enjoying a very high quality of life. He walks daily at the [facility]. He works at the [employer]. He denies any family history of colon cancer. ROS General General: No weight change, appetite, fatigue, colon cancer, breast cancer or weakness HEENT HEENT: No difficulty swallowing, eye injury, eye surgery, swollen glands or hoarseness Endo Endocrine: No thyroid disease, diabetes mellitus, thyroid cancer, Hair loss, heat intolerance or cold intolerance Skin Skin: No rash or changing moles Breast Breast: No left breast lump, right breast lump, nipple discharge, breast pain, abnormal mammogram, abnormal US or breast enlargement Musc Musculoskeletal: Yes arthritis and rheumatoid arthritis; No back problems, gout or joint pain Cardio Cardiovascular: Yes high blood pressure; No murmur, pacemaker, heart disease, atrial fibrillation, heart attack, heart stent, palpitations, shortness of breat with exertion or chest pain Psych Psychiatric: No depression, anxiety or hearing voices Resp Respiratory: No shortness of breath, Yes sleep apnea, Yes cough, No COPD, No asthma, No emphysema and No wheezing Gastro Gastrointestinal: No abdominal pain, No nausea or vomiting, No diarrhea, No constipation, No blood in stool, Yes acid reflux, Yes hemorrhoids, No ulcers, No gallbladder problem and No black,tarry stools Sander Hematologic: No blood thinners, No blood disorders, No bleeding, No anemia and No blood clots Neuro Neurologic: No system reviewed and no additional complaints, except as documented, No as per HPI, No abnormal gait, No abnormal hearing, No abnormal movements, No abnormal speech, No behavioral changes, No burning sensations, No confusion, No convulsions, No disequilibrium, No dizziness, No localized weakness, No frequent falls, No headache(s), No lack of coordination, No loss of vision, No memory loss, No numbness, No other visual disturbances, No radicular pain, No restless legs, No sensory deficit, No syncope, No tingling, No tremor(s), No weakness and No other Exam Const General: cooperative, healthy appearing, comfortable and no acute distress [facility] Head: normal to inspection Eyes General: appearance normal, both eyes and all related structures Neck Neck: normal visual inspection Chest Chest palpation & inspection: normal inspection of the chest Resp Effort & Inspection: normal respiratory effort Cardio Rate: regular rate Rhythm: regular rhythm GI Palpation: soft and no hepatosplenomegaly Musc Cervical Spine: normal cervical lordosis Skin General: no rashes or lesions noted Neuro General: patient alert, patient awake and patient oriented x3 Extrem General: normal to inspection Psych Appearance: grossly normal Assessment and Plan Assessment and Plan (1) Personal history of colonic polyps: Status: Chronic Plan: 83-year-old gentleman who enjoying a very high quality of life. Personal history of colon polyps. Cannot get back to the previous pathology prior to his most recent colonoscopy of 2018. I do recommend to him a colonoscopy with possible biopsy or polypectomy as indicated. He is aware of technique, benefit, risk, alternatives. I would anticipate that this likely will be his final surveillance colonoscopy of course unless significant pathology is identified. I appreciate the ongoing opportunity of assisting with the surgical care. Copy: Dr. Srinivas Vega M.D., F.A.C.S I have examined the patient and the H&P has been reviewed. There are no clinical changes since date of exam. Robel Vega M.D., F.A.C.S.
[2024-01-11 06:05] VITALS: BP 163/78; PULSE 60; RESP 16; TEMP 36.6; O2SAT 98; BMI 27.8
[2024-01-11] MEDS: Lactated Ringers 1,000 ML 15 ML IV (06:05)
[2024-01-11 06:55] VITALS: BP 104/57; BP 163/87; PULSE 64; RESP 18; TEMP 35.8; O2SAT 92
--- NOTE | 2024-01-11 06:59 | OP.COLON_ITS ---
Patient Name: Sadi Hedrick Procedure Date: 01/11/2024 6:22 AM Date of : 1940 Age: 83 Procedure: Colonoscopy Indications: High risk colon cancer surveillance: Personal history of colonic polyps Providers: Robel Vega MD Medicines: See the Anesthesia note for documentation of the administered medications Patient Profile: Last Colonoscopy: 2017. Complications: No immediate complications. Procedure: Pre-Anesthesia Assessment: - Prior to the procedure, a History and Physical was performed, and patient medications and allergies were reviewed. The patient's tolerance of previous anesthesia was also reviewed. The risks and benefits of the procedure and the sedation options and risks were discussed with the patient. All questions were answered, and informed consent was obtained. Prior Anticoagulants: The patient has taken no anticoagulant or antiplatelet agents. ASA Grade Assessment: II - A patient with mild systemic disease. After reviewing the risks and benefits, the patient was deemed in satisfactory condition to undergo the procedure. After I obtained informed consent, the scope was passed under direct vision. Throughout the procedure, the patient's blood pressure, pulse, and oxygen saturations were monitored continuously. The Colonoscope was introduced through the anus and advanced to the cecum, identified by appendiceal orifice and ileocecal valve. The colonoscopy was performed without difficulty. The patient tolerated the procedure well. The quality of the bowel preparation was good. The ileocecal valve and the appendiceal orifice were photographed. Scope In: 6:32:36 AM Scope Withdrawal Time 0 hours 8 minutes 59 seconds Scope Out: 6:49:15 AM Total Procedure Duration Time 0 hours 16 minutes 39 seconds Findings: Hemorrhoids were found on perianal exam. The digital rectal exam findings include non-thrombosed external hemorrhoids, non-thrombosed internal hemorrhoids and internal hemorrhoids that prolapse with straining, but spontaneously regress to the resting position (Grade II). Two sessile polyps were found in the mid sigmoid colon. The polyps were 2 to 3 mm in size. These polyps were removed with a cold biopsy forceps. Resection and retrieval were complete. A 2 mm polyp was found in the distal sigmoid colon. The polyp was sessile. The polyp was removed with a cold snare. Resection and retrieval were complete. Multiple diverticula were found in the sigmoid colon and descending colon. Impression: - Very flat prostate bed - Non-thrombosed external hemorrhoids, non-thrombosed internal hemorrhoids and internal hemorrhoids that prolapse with straining, but spontaneously regress to the resting position (Grade II) found on digital rectal exam. - Two 2 to 3 mm polyps in the mid sigmoid colon, removed with a cold biopsy forceps. Resected and retrieved. - One 2 mm polyp in the distal sigmoid colon, removed with a cold snare. Resected and retrieved. - Diverticulosis in the sigmoid colon and in the descending colon. Recommendation: - Discharge patient to home. - Resume previous diet. - Continue present medications. - Repeat colonoscopy in 5 years for surveillance. - Telephone my office for pathology results in 1 week. Procedure Code(s): --- Professional --- 97731, 59, Colonoscopy, flexible; with biopsy, single or multiple CPT copyright 2021 [employer]. All rights reserved. The codes documented in this report are preliminary and upon trailhead construction worker review may be revised to meet current compliance requirements. Robel Vega MD 01/11/2024 6:58:40 AM This report has been signed electronically. Number of Addenda: 0 Note Initiated On: 01/11/2024 6:22 AM
--- NOTE | 2024-01-11 06:59 | OP.CCLET_ITS ---
01/11/2024 Mike Sevilla Re : Colonoscopy procedure for Sadi Hedrick Dear Dr. Sevilla This procedure was performed on Thursday, January 11, 2024. My impressions and recommendations are as follows: Impressions : - Very flat prostate bed - Non-thrombosed external hemorrhoids, non-thrombosed internal hemorrhoids and internal hemorrhoids that prolapse with straining, but spontaneously regress to the resting position (Grade II) found on digital rectal exam. - Two 2 to 3 mm polyps in the mid sigmoid colon, removed with a cold biopsy forceps. Resected and retrieved. - One 2 mm polyp in the distal sigmoid colon, removed with a cold snare. Resected and retrieved. - Diverticulosis in the sigmoid colon and in the descending colon. Recommendations : - Discharge patient to home. - Resume previous diet. - Continue present medications. - Repeat colonoscopy in 5 years for surveillance. - Telephone my office for pathology results in 1 week. My findings are described in the full procedure note, which is enclosed. If I can be of further assistance, please feel free to contact me at Doctor phone number(s): Work: . Sincerely, Robel Vega MD 01/11/2024 6:58:40 AM This report has been signed electronically.
[2024-01-11 07:00] VITALS: BP 163/87; BP 98/57; PULSE 61; RESP 14; O2SAT 93
[2024-01-11 07:05] VITALS: BP 163/87; BP 97/61; PULSE 58; PULSE 61; RESP 12; RESP 14; O2SAT 93; O2SAT 99
[2024-01-11 07:15] VITALS: BP 103/86; BP 163/87; PULSE 61; RESP 18; TEMP 36.5; O2SAT 95
[2024-01-11 07:29] VITALS: BP 163/87
== END 2024-01-11 07:52 | disposition home or self-care (01) ==
LOC: EN 05:33 → AC 05:34
PROVIDERS: PCP Family Medicine; Referring Provider Family Medicine; Visit Provider Surgery
PROC: 0DJD8ZZ Inspection of Lower Intestinal Tract, Via Natural or Artificial Opening Endoscopic (ICD-10-PCS; CPT 45378; principal; 2024-01-11 06:25)
DX: Z12.11 Encounter for screening for malignant neoplasm of colon (principal); K64.4 Residual hemorrhoidal skin tags; K63.5 Polyp of colon; K57.30 Diverticulosis of large intestine without perforation or abscess without bleeding; Z86.010 Personal history of colon polyps; I10 Essential (primary) hypertension; Z85.46 Personal history of malignant neoplasm of prostate; Z79.899 Other long term (current) drug therapy; K21.9 Gastro-esophageal reflux disease without esophagitis; Z90.79 Acquired absence of other genital organ(s); K64.1 Second degree hemorrhoids
CPT/HCPCS: 45385; 88305; J7120; J2405

== ENCOUNTER → 2024-05-31 | Outpatient (CLI) | payer MEDICARE, SELFPAY ==
--- NOTE | 2024-05-31 11:11 | CT_ITS ---
INDICATION: abdominal pain --assess for a hernia EXAMINATION: CT ABDOMEN AND PELVIS WITHOUT CONTRAST - CT Abdomen And Pelvis W/O Contrast Injection TECHNIQUE: Helically acquired images were obtained of the abdomen and pelvis without oral or IV contrast. The protocol utilizes one or more of the following dose reduction techniques: automated exposure control, adjustment of mA and/or kV according to patient size,and/or use of iterative reconstruction technique. IV Contrast dosage and agent: None. Oral contrast: None. RADIATION DOSAGE (If Supplied By Facility): CTDIvol = ( 11.30 ) mGy, DLP = ( 666.27 ) mGycm COMPARISON: No relevant prior comparison study available FINDINGS: LOWER CHEST: Lung bases are clear. No cardiomegaly or pericardial effusion. The lack of intravenous contrast limits evaluation of solid visceral organs. LIVER: There is a too small to characterize low-attenuation focus within the dome of the liver which may reflect a cyst or hemangioma. GALLBLADDER AND BILIARY TREE: No calcified gallstones. No gallbladder distension or wall edema. No intra- or extrahepatic biliary ductal dilation. PANCREAS: No focal cystic or solid mass. SPLEEN: There are splenic granulomas. ADRENAL GLANDS: No nodules. KIDNEYS AND URETERS: Normal renal size and position. No hydronephrosis. PERITONEUM: No ascites or free air. No other fluid collection. BOWEL: There is a small hiatal hernia. No evidence of acute appendicitis. No stomach or bowel distension. There are diverticula arising from the colon. No focal inflammatory change. LYMPH NODES: No enlarged mesenteric or retroperitoneal lymph nodes. VESSELS: Aorta is non-dilated. There are peripheral calcifications of the abdominal aorta. URINARY BLADDER: Unremarkable. REPRODUCTIVE ORGANS: No pelvic masses. ABDOMINAL WALL: There is a small fat-containing umbilical hernia. BONES: No lytic or blastic abnormality. There are degenerative changes of the lumbar spine. There are bilateral L5 pars defects. CT/Abdomen/Pelvis without Cont IMPRESSION: Colonic diverticulosis. Hiatal hernia. Small fat-containing umbilical hernia. Bilateral L5 pars defects. Degenerative changes of the lumbar spine. Atherosclerosis. Electronically Signed: Nicol Case MD at 11:42 EDT ,
== END | disposition home or self-care (01) ==
PROVIDERS: PCP Family Medicine; Referring Provider Physician Assistant; Visit Provider Physician Assistant
DX: R10.31 Right lower quadrant pain (principal)
CPT/HCPCS: 74176

== ENCOUNTER 2024-07-20 09:31 | Day surgery (SDC) | payer MEDICARE, SELFPAY ==
--- NOTE | 2024-07-11 09:59 | EKG12_ITS ---
Test Reason : PREOP Blood Pressure : */* mmHG Vent. Rate : 66 BPM Atrial Rate : 66 BPM P-R Int : 190 ms QRS Dur : 82 ms QT Int : 388 ms P-R-T Axes : 11 24 11 degrees QTcB Int : 406 ms Normal sinus rhythm Normal ECG Confirmed by ROLF GIORDANO, KINGSLEY ([id number]), news copy editor SAMMI PATRICK ([id number]) on 07/12/2024 8:46:37 AM Referred By: Girish Santizo Confirmed By: KINGSLEY BANSAL MD
[2024-07-11 11:05] LABS: Hematocrit 43.6 % (40-54); Hemoglobin 14.7 g/dL (13.0-16.5); Mean Corp Hgb Conc 33.7 g/dL (32-36); Mean Corpuscular Hgb 29.5 pg (27.0-32.0); Mean Corpuscular Volume 87.4 fL (80-94); Mean Platelet Vol. 10.5 fl (6.2-12.0); Platelet Count 200 K/mm3 (150-450); RBC Distribution Width CV 14.3 % (11.6-14.6); RBC Distribution Width SD 46.1 fl (35.1-43.9); Red Blood Count 4.99 M/mm3 (4.6-6.2); White Blood Count 6.9 K/mm3 (4.4-11.0)
[2024-07-20] VITALS (9 sets, daily range): BP systolic 151–182; BP diastolic 81–91; PULSE 60–80; RESP 16–18; TEMP 36.1–36.9; O2SAT 94–99; BMI 27.6
[2024-07-20] MEDS: Lactated Ringers 1,000 ML 15 ML IV (10:17)
--- NOTE | 2024-07-20 10:36 | PCM.PRE.AN2 ---
ASA Classification* ASA Classification ASA Classification: 2 Assessment & Plan Anesthesia* Anesthesia Assessment Anesthesia Assessment: Discussed sedation and/or anesthesia options, risks, benefits, and alternatives with patient/parents/legal guardian/POA. Questions invited. The patient/parents/legal guardian/POA seems to understand and agrees to proceed with anesthesia plan. Reviewed the physical assessment, medical history, allergy history and patient home medications list prior to surgery/procedure/anesthetic and documented any changes. Performed airway and anesthesia risk assessments. Anesthesia Type Anesthesia Type: General History Source History Obtained from:: Patient and Chart Anesthesia Focused Assessment* Temperature: 98.5 F Pulse Rate: 67 Blood Pressure: 164/90 Respiratory Rate: 16 Pulse Ox: 99 Oxygen Delivery Method: Room Air Airway Assessment Mouth opens: >3 cm Mallampati Score: I Teeth Condition: Caps/Crowns (Patient has a crown bottom right molar. It is tight.) Neck Range of motion (ROM): Limited ROM (Slight decrease in extension) Focused Labs Anesthesia Preop lab: CBC WBC 6.9 K/mm3 (4.4-11.0) 07/11/24 10:25 RBC 4.99 M/mm3 (4.6-6.2) 07/11/24 10:25 Hgb 14.7 g/dL (13.0-16.5) 07/11/24 10:25 Hct 43.6 % (40-54) 07/11/24 10:25 Plt Count 200 K/mm3 (150-450) 07/11/24 10:25 CHEMISTRY Potassium 4.3 mmol/L (3.5-5.1) 10/19/23 09:06 Sodium 141 mmol/L (136-145) 10/19/23 09:06 BUN 14 mg/dL (7-18) 10/19/23 09:06 Creatinine 1.26 mg/dL (0.70-1.30) 10/19/23 09:06 Glucose 89 mg/dL (74-106) 10/19/23 09:06 POC Glucose 85 mg/dL (70-110) 09/09/18 13:11 COAG PT 13.7 SECONDS (11.7-14.9) 09/09/18 13:15 Pre-Assessment Diagnosis/Proposed Procedure Planned Operative Procedure(s): OPEN RIGHT INGUINAL HERNIA WITH MESH Anesthesia History Anesthesia History - administrative assistant coordinator: Anesthesia History - administrative assistant coordinator Hx Hospitalization No 07/06/24 14:31 Any Problems With Anesthesia No 07/06/24 14:31 Cholinesterase deficiency No 07/06/24 14:31 You/Your Family Experience No 07/06/24 14:31 fever (hyperthermia) with Relationship Recent Exposure to Contagious No 07/20/24 10:07 Disease Does patient have nerve No 07/06/24 14:31 stimulator Patient instructed to have device shut off --Does patient have Pacemaker No 07/20/24 10:07 or ICD? When Was Last Pacemaker Check QUESTION #4 FULL TEXT: You/Your Family Experience fever (hyperthermia) with Anesthesia Last Oral Intake Last Oral intake: Last Oral Intake NPO since 07:00 07/20/24 10:07 Meds taken in AM with sips of Yes 07/20/24 10:07 water? Meds patient instructed to see mar 07/20/24 10:07 take am of surgery Any additional information?: Yes Meds taken in AM with sips of water?: Yes PONV PONV - administrative assistant coordinator: PONV - administrative assistant coordinator Female No 07/06/24 14:31 HX of Motion Sickness No 07/06/24 14:31 HX of N/V After Surgery No 07/06/24 14:31 Non-Smoker Yes 07/06/24 14:31 Duration of Surgery greater No 07/06/24 14:31 than 60 minutes Number of Risk Factors 1 07/06/24 14:31 PONV Score Low Risk 07/06/24 14:31 Height & Weight Height & Weight: Anesthesia: Height & Weight Height 5 ft 9 in 07/20/24 10:07 Weight: 84.822 kg 07/20/24 10:07 Body Mass Index (BMI) 27.6 07/20/24 10:07 Respiratory Assessment Respiratory Assessment - administrative assistant coordinator: Respiratory Tract Infection Hx - administrative assistant coordinator Hx Respiratory Tract Infection No 07/06/24 14:31 STOP Sleep Apnea STOP Sleep Apnea - administrative assistant coordinator: STOP Sleep Apnea - administrative assistant coordinator Hx Hypertension Yes: CONTROLLED WITH MED 07/06/24 14:31 Hx Sleep Apnea No 07/06/24 14:31 CPAP BIPAP Do you snore loudly (louder No 07/06/24 14:31 than talking or can be heard Do you often feel tired/ No 07/06/24 14:31 fatigued/ sleepy during daytime? Has anyone observed you stop No 07/06/24 14:31 breathing during sleep? STOP Results Negative 07/06/24 14:31 QUESTION #5 FULL TEXT : Do you snore loudly (louder than talking or can be heard through closed doors)? Tobacco Use History Tobacco Use History - administrative assistant coordinator: Tobacco Use History - administrative assistant coordinator Tobacco Use Smoking Status Never smoker 07/06/24 14:31 Hx Tobacco Use No 07/06/24 14:31 Years Smoking Packs Smoked per Day Smoking Cessation Date was within the last 15 years Hx Smoking Cessation Date Hx Smoking Cessation No 07/06/24 14:31 Counseling Hematologic Medial History Hematologic Hx - administrative assistant coordinator: Hematologic Medical Hx - operating manager Hx of Blood Transfusion No 07/06/24 14:31 Hx of Transfusion in last 3 No 07/06/24 14:31 Months Date of Last Transfusion (if within last 3 months) Ever experience any problems No 07/06/24 14:31 with transfusion(s)? Specify any problems Hx of Preganancy in last 3 N/A 07/06/24 14:31 Months Nurse Filling Out Transfusion DSCHRIBER 07/06/24 14:31 & Questions: Date: 07/06/24 07/06/24 14:31 Time: 14:32 07/06/24 14:31 Patient unable to answer at this time (ie. confused, unrespo /Reproduction History /Reproductive History - administrative assistant coordinator: /Reproductive Hx- administrative assistant coordinator Hx Now No 07/06/24 14:31 Gestational Age (in weeks): EDC: Hx Hx Para Hx Section SAB No 07/06/24 14:31 Active Medications Active Medications: Current Medications Generic Name Dose Route Start Last Admin Trade Name Freq PRN Reason Stop Dose Admin Cefazolin Sodium 2 gm/ N/A 20 mls @ 400 mls/hr 07/20/24 11:00 IV 07/20/24 11:02 PREOP ONE Lactated Ringer's 1,000 mls @ 15 mls/hr 07/20/24 10:00 07/20/24 10:17 IV 07/25/24 23:19 15 mls/hr .Q48H MICHAELLE Administration Protocol PFSH Medical History Wears glasses Wears partial dentures Cancer Rheumatoid arthritis Back pain History of hiatal hernia Heartburn Non-smoker Leg cramps History of pain when walking Hypertension History of stress test History of echocardiogram History of Holter monitoring Rheumatoid arthritis Prostate cancer GERD (gastroesophageal reflux disease) Cataracts, bilateral Arthritis Seasonal allergies Personal history of colonic polyps Home Medications ?Medication ?Instructions ?Recorded ?Last Taken ?Type melatonin 3 mg-C 45 mg-D3 12.5 1 tab PO QHS 06/03/23 01/10/24 History mcg-zinc 3.75 mg-elder chewable tablet (Sleep Immune Health) omeprazole magnesium 20 mg 20 mg PO DAILY PRN Indigestion #90 12/24/23 07/20/24 Rx capsule,delayed release (Acid caps Firearms Instructor (omeprazole)) turmeric 400 mg capsule 400 mg PO DAILY 05/24/24 Unknown History losartan 50 mg tablet 50 mg PO DAILY #90 TABLETS 06/06/24 07/20/24 Rx ipratropium bromide 42 mcg (0.06 2 spray intranasal DAILY PRN PRN 06/28/24 07/20/24 History %) nasal spray allergy symptoms vit C 333.3 mg-olive leaf extract 2 cap PO DAILY 07/06/24 Unknown History 333.3 [id number] 83.3 mg capsule (Immune Essentials) Allergy/AdvReac Type Severity Reaction Status Date / Time latex Allergy Intermediate Bumps Verified 07/20/24 10:06 Family History Brother Arthritis Brother Arthritis Heart disease CVA (cerebral vascular accident) Mother Myocardial infarction Heart disease CVA (cerebral vascular accident) Father Kidney disease Surgical History Hx of shoulder surgery Hx of colonoscopy History of cataract extraction History of prostatectomy History of hand surgery Social History household members: spouse current occupational status: employed 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
--- NOTE | 2024-07-20 10:52 | HP.PCM_ITS ---
History and Physical Date of Admission: 07/20/24 Intake Vital Signs 06/14/2409:56 06/28/2409:18 Height 5 ft 9 in 5 ft 9 in Weight: 188 lb 2 oz 188 lb 4 oz BMI 27.8 27.8 BP 126/82 H 158/90 H Blood Pressure Location Lt brachial Rt brachial Position Sitting Sitting Respiration 16 18 Pulse 72 82 Pulse Source Monitor Monitor Temp 97.7 F L 97.3 F L Temp Source Temporal Temporal Pulse Oximetry (%) 97 96 Oxygen Delivery Method room air room air Intake Visit Reasons: INGUINAL HERNIA Chief Complaint: right inguinal hernia Is patient in pain?: Yes (with movement) Pain scale (1-10): 2 Allergies latex Allergy (Intermediate, Verified 06/14/24 09:53) Bumps Medications ?Medication ?Instructions ?Recorded ?Confirmed ?Type melatonin 3 mg-C 45 mg-D3 12.5 1 tab PO QHS 06/03/23 06/28/24 History mcg-zinc 3.75 mg-elder chewable tablet (Sleep Immune Health) omeprazole magnesium 20 mg 20 mg PO DAILY PRN Indigestion #90 12/24/23 06/28/24 Rx capsule,delayed release (Acid caps Power Cutting Machine Operator (omeprazole)) turmeric 400 mg capsule mg PO 05/24/24 06/28/24 History losartan 50 mg tablet 50 mg PO DAILY #90 TABLETS 06/06/24 06/28/24 Rx ipratropium bromide 42 mcg (0.06 intranasal 06/28/24 06/28/24 History %) nasal spray Have you fallen in the past year?: No PFSH Medical History Open wound Easy bruising Flu vaccine need Wears glasses Wears partial dentures Cancer History of steroid therapy Rheumatoid arthritis Back pain History of hiatal hernia Heartburn Non-smoker Leg cramps History of pain when walking Hypertension History of stress test History of echocardiogram History of Holter monitoring Rheumatoid arthritis Prostate cancer GERD (gastroesophageal reflux disease) Cataracts, bilateral Arthritis Seasonal allergies Personal history of colonic polyps Surgical History Hx of shoulder surgery Hx of colonoscopy History of cataract extraction History of prostatectomy History of hand surgery Family History Brother ArthritisBrother Arthritis Heart disease CVA (cerebral vascular accident)Mother Myocardial infarction Heart disease CVA (cerebral vascular accident)Father Kidney disease Social History household members: spouse current occupational status: employed current occupation: Works department store door greeter at the [employer] Smoking Status: Never smoker alcohol intake: never substance use type: does not use frequency: 3-4 times per week HPI HPI HPI: Patient is an 83-year-old male who presents with right inguinal hernia has been there for at least a month. He has had a history of prostatectomy via robotic approach. Patient has a hernia on the right side which he reports is painful especially when straining or swinging his golf club. ROS General General: No weight change, appetite, fatigue, colon cancer, breast cancer or weakness HEENT HEENT: No difficulty swallowing, eye injury, eye surgery, swollen glands or hoarseness Endo Endocrine: No thyroid disease, diabetes mellitus, thyroid cancer, Hair loss, heat intolerance or cold intolerance Skin Skin: No rash or changing moles Musc Musculoskeletal: Yes arthritis and rheumatoid arthritis; No back problems, gout or joint pain Cardio Cardiovascular: Yes high blood pressure; No murmur, pacemaker, heart disease, atrial fibrillation, heart attack, heart stent, palpitations, shortness of breat with exertion or chest pain Psych Psychiatric: No depression, anxiety or hearing voices Resp Respiratory: No shortness of breath, No sleep apnea, No cough, No COPD, No asthma, No emphysema and No wheezing Gastro Gastrointestinal: No abdominal pain, No nausea or vomiting, No diarrhea, No constipation, No blood in stool, Yes acid reflux, Yes hemorrhoids, No ulcers, No gallbladder problem and No black,tarry stools Sander Hematologic: No blood thinners, No blood disorders, No bleeding, No anemia and N o blood clots Neuro Neurologic: No numbness, No tingling and No weakness Exam Const General: cooperative Orientation: alert and oriented x3 HENMT Head: normal to inspection Neck Neck: normal visual inspection and full ROM Chest Chest palpation & inspection: normal inspection of the chest Resp Effort & Inspection: normal respiratory effort Auscultation: clear to auscultation bilaterally Cardio Rate: regular rate Rhythm: regular rhythm GI Inspection: non-distended Palpation: soft, hernia direct inguinal on the right and nontender Skin General: no rashes or lesions noted Neuro General: patient alert and patient oriented x3 Extrem General: full ROM Psych Appearance: grossly normal Mental Status: mental status grossly normal Assessment and Plan Assessment and Plan (1) Direct inguinal hernia of right side: Status: Acute Plan: The patient has an inguinal hernia on the right side. It is reducible. Because he has had robotic prostatectomy that precludes him from having a robotic inguinal hernia repair. I recommended open right inguinal hernia repair with mesh. I discussed this procedure in detail with the patient. I discussed this procedures risks including but not limited to bleeding, infection, injury other organs or chronic nerve injury. Patient understands all the risks and is willing to proceed. I also did discuss mesh placement as well as recurrence risks with him. Girish Santizo MD Pager: [facility] [address] [place] [address], [address] [place] [phone] Office: I have examined the patient and the H&P has been reviewed. There are no clinical changes since date of exam.
--- NOTE | 2024-07-20 11:00 | HERN_PTH ---
PATIENT: NOE MIRELES LOC: [facility] U#:[id number] AGE/SX: 83/M ROOM: RE07/20/[address]: Dr. Girish Santizo MD : 1940 BED: DIS: 07/20/2024 SPEC #: [id number] RECD: 07/20/24 13:25 STATUS: EMANUEL GIRISH #: [id number] NATALEE: 07/20/24 11:[address]: Girish Santizo DEPT: SURGICAL PATHOLOGY RECD BY: Marilee Handley ENTERED: 07/20/24 14:34 SP TYPE: Hernia OTHR DR: Dr. Mike Sevilla, DO Tissues: HERNIA Procedures: Surgery Specimen Level II HEADER OPERATION: Hernia, open inguinal with mesh PRE-OP DIAGNOSIS: Direct inguinal hernia of right side TISSUE SUBMITTED: Right inguinal hernia sac and contents MICROSCOPIC DIAGNOSIS Right inguinal hernia sac and contents: Mesothelial lined fibroadipose and fibroconnective tissue, consistent with hernia sac with reactive changes. 07/21/2024 MICROSCOPIC DESCRIPTION Slides are reviewed. GROSS DESCRIPTION Received in fixative is one container labeled with the patient's name and designated Right inguinal hernia sac and contents. The specimen consists of two pieces of locke-pink soft tissue and adipose tissue measuring in aggregate 4.0 x 4.0 x 0.7cm. Sections do not reveal any mass lesions. Fiber Design Engineer sections are submitted in one cassette. 07/20/2024 TC:5 CPT:15187
[2024-07-20] MEDS: Cefazolin 2 GM in Syringe IV (11:40)
[2024-07-20] MEDS: Bupiv/Epi 0.25% 30 ML Vial (11:53)
--- NOTE | 2024-07-20 12:42 | OP.PCM_ITS ---
Operative Report (Standard) Operative Information Surgery/Procedure Performed: Open right inguinal hernia repair with mesh Surgeon: Girish Santizo Date of Procedure: 07/20/24 Procedure Start Time: 11:53 Procedure Stop Time: 12:40 Pre-Operative Diagnosis: Right inguinal hernia Post-Operative Diagnosis: Right inguinal hernia Select all DRAINS/GRAFTS/IMPLANTS that apply: Implanted device Implanted device details: Bard keyhole mesh in the right inguinal region Type of Anesthesia: General/Regional Estimated Blood Loss: 5 Specimen collected: Yes Description of specimen(s) removed: Hernia sac Description of surgery: Patient was brought back to the operating room and general anesthesia was induced. The right groin was prepped and draped in usual sterile fashion. An incision was marked and then injected with local anesthetic. Incision was made with a scalpel and deepened to the external aponeurosis. There was a small vein that was suture-ligated. Next the external aponeurosis was opened with a scalpel and both edges were raised with hemostats and then scissors were used to open the external ring. The ilioinguinal nerve was encountered and spared. The next the spermatic cord was surrounded with a Shepherd drain and elevated. The floor of the inguinal canal was checked and there was no direct hernia. The cord was then inspected and an indirect inguinal hernia was observed. The hernia sac was dissected free from the cord. The hernia sac was then opened and checked to make sure there is no intestinal contents and then it was closed with an 0 silk suture and then the distal sac was resected. The proximal sac was allowed to reduce in the abdomen. Next a Bard keyhole mesh was tacked to the pubic tubercle using 2-0 PDS suture. It was then sutured to the shelving portion of the inguinal ligament with interrupted 2-0 PDS sutures. It was sutured medially to the conjoined tendon with interrupted 2-0 PDS sutures. The tails were then wrapped around the spermatic cord and sutured to itself leaving enough room for the tip of the pinky finger to insert alongside the cord. The flaps were then tucked underneath the external aponeurosis. The area was inspected and there was good hemostasis and there was enough room adjacent to the cord. The area was irrigated and suctioned dry and the external aponeurosis was closed from the lateral to medial using a running 3-0 Vicryl suture closing the external aponeurosis over the mesh. The ilioinguinal nerve was also tucked under the external aponeurosis. Next the subcutaneous Mike's fascia was closed with interrupted 3-0 Vicryl sutures. The skin was closed with a running 4-0 Monocryl suture. Dermabond was applied. Scrotum was checked at the end of the case and contain both testicles. Patient was brought to PACU in stable condition and tolerated the procedure well. Surgical Findings: Right inguinal hernia, indirect Real Estate Agent/Broker pipe stress engineer: Yes Tile And Marble Setter: Lisa Khalil Tasks completed by executive personal assistant: Opening, Closing and Retracting Complications Complications: No Admit VTE Documentation VTE Mechan Device Prophylaxis: SCD's
--- NOTE | 2024-07-20 12:47 | EX.PCM.DISCH ---
Discharge Instructions Procedure Hernia Diet Discharge Diet: Light diet - advance as tolerated Activity Discharge Activity: May Not Drive (for 2-3 days or while taking narcotic pain meds.) and May Shower (with the bandage in place 1-2 days after surgery.) Lifting Restrictions: 20 pounds for 6 weeks. Additional Activity Instructions:: Climbing stairs is fine, walking is encouraged. Sitting in bed may be uncomfortable. Sitting up using your lateral muscles (sitting up sideways) is usually more comfortable. Do not drive, work heavy equipment of sign legal documents for 24 hours. If your hernia repair was an inguinal repair, you may have scrotal swelling, an ice pack and/or athletic support can provide more comfort. Pain medications may cause nausea, you should typically eat light foods as you take your pain medications. Pain medications may also cause constipation. If you have difficulty with this, discuss with your doctor. Alternate ibuprofen and Tylenol for pain control, oxycodone for breakthrough pain Dressing / Incision Call your doctor if your incision/area has: Continuous Slow Oozing, Sudden Increased Bleeding, Increased Pain/ Swelling, Increased Redness and Foul Smelling Discharge Call your doctor if you observe: Fever of 101 or Higher Suture Line Care: Avoid Pulling/Pushing and Avoid Pinching/Bending Cleanse incision/area with: Soap & Water Follow Up Care Please Follow Up With: Girish Santizo MD When: Please call to schedule 2 week follow up appointment. [phone] Test Results: Test results from this visit will be discussed in further detail at your follow-up appointment, if applicable. Discharge Plan Admission Attending Provider: Girish Santizo Primary Care Provider: Mike Sevilla Instructions Print Language: Azerbaijani Discharge Orders/Prescriptions Prescriptions: New oxycodone 5 mg Tablet 5 - 10 mg PO Q4H PRN PRN (Reason: Pain Score 4-10) 5 Days Qty: 14 0RF No Action Sleep Immune Health 3 mg-45 mg-12.5 mcg-3.75 mg tablet,chewable 1 tab PO QHS turmeric 400 mg capsule 400 mg PO DAILY ipratropium bromide 42 mcg (0.06 %) spray,non-aerosol 2 spray intranasal DAILY PRN PRN (Reason: allergy symptoms) Patient Comments: [NO ORIGINAL SIG] Immune Essentials 333.3 mg-333.3 mg-83.3 mg capsule 2 cap PO DAILY omeprazole magnesium [Acid Software Engineering Supervisor (omeprazole)] 20 mg capsule,delayed release(DR/EC) 20 mg PO DAILY PRN (Reason: Indigestion) Qty: 90 0RF losartan 50 mg tablet 50 mg PO DAILY Qty: 90 3RF Referrals / Follow Up: Mike Sevilla DO [Primary Care Provider] - Disposition Disposition (needs filled in before D/C Order can be placed): Home, Self Care
--- NOTE | 2024-07-20 12:48 | PCM.POST.ANE ---
Anesthesia: Postop Eval I Current Vital Signs Temperature: 97 F Pulse Rate: 78 Blood Pressure: 182/91 Respiratory Rate: 18 Pulse Ox: 98 Assessment Airway patent: Yes Spontaneous unlabored respirations: Yes nausea: No Vomiting: No Anesthesia Complication: No Fluid Hydration Crystalloid volume administer (ml): 800 Total IV fluid infused: 800 Progress Note Anesthesia document: Postop Eval 1 completed: Yes
--- NOTE | 2024-07-20 17:04 | POSTOPAN2_ITS ---
Anesthesia Postop Eval I Sum Postop Eval Completion status Anesthesia document: Postop Eval 1 completed: Yes Anesthesia Postop Eval I Summary Anesthesia Postop Eval I Summary: Anesthesia Postop Eval I: Assessment Summary Airway patent Yes 07/20/24 12:49 CHEMICAL DEPENDENCY COUNSELOR.[email or web address] Spontaneous unlabored Yes 07/20/24 12:49 CHEMICAL DEPENDENCY COUNSELOR.CSIR respirations Mental status nausea No 07/20/24 12:49 CHEMICAL DEPENDENCY COUNSELOR.CSIR Vomiting No 07/20/24 12:49 CHEMICAL DEPENDENCY COUNSELOR.CSIR Anesthesia Postop Eval I: Fluid Summary Crystalloid volume administer 800 07/20/24 12:49 CHEMICAL DEPENDENCY COUNSELOR.CSIR (ml) Colloids volume administered ( ml) Blood Product volume administered (ml) Total IV fluid infused 800 07/20/24 12:49 CHEMICAL DEPENDENCY COUNSELOR.CSIR Anesthesia Postop Eval I: Summary Notes Anesthesia Complication No 07/20/24 12:49 CHEMICAL DEPENDENCY COUNSELOR.CSIR Anesthesia Complication Comment: Post-operative progress note Anesthesia: Postop Eval II Evaluation Mental status: Awake and Calm Pain Level: 1 nausea: No Vomiting: No
--- NOTE | 2024-07-20 17:04 | PCM.POSTANE2 ---
Anesthesia Postop Eval I Sum Postop Eval Completion status Anesthesia document: Postop Eval 1 completed: Yes Anesthesia Postop Eval I Summary Anesthesia Postop Eval I Summary: Anesthesia Postop Eval I: Assessment Summary Airway patent Yes 07/20/24 12:49 CARDIOPULMONARY TECHNOLOGIST CHIEF.CSIR Spontaneous unlabored Yes 07/20/24 12:49 CARDIOPULMONARY TECHNOLOGIST CHIEF.CSIR respirations Mental status nausea No 07/20/24 12:49 CARDIOPULMONARY TECHNOLOGIST CHIEF.CSIR Vomiting No 07/20/24 12:49 CARDIOPULMONARY TECHNOLOGIST CHIEF.CSIR Anesthesia Postop Eval I: Fluid Summary Crystalloid volume administer 800 07/20/24 12:49 CARDIOPULMONARY TECHNOLOGIST CHIEF.CSIR (ml) Colloids volume administered ( ml) Blood Product volume administered (ml) Total IV fluid infused 800 07/20/24 12:49 CARDIOPULMONARY TECHNOLOGIST CHIEF.CSIR Anesthesia Postop Eval I: Summary Notes Anesthesia Complication No 07/20/24 12:49 CARDIOPULMONARY TECHNOLOGIST CHIEF.CSIR Anesthesia Complication Comment: Post-operative progress note Anesthesia: Postop Eval II Evaluation Mental status: Awake and Calm Pain Level: 1 nausea: No Vomiting: No
== END 2024-07-20 16:26 | disposition home or self-care (01) ==
LOC: SDC 09:40 → AC 09:41
PROVIDERS: Anesthesiology; PCP Family Medicine; Referring Provider Surgery; Visit Provider Surgery
PROC: (CPT 49505; principal; 2024-07-20 10:45)
DX: K40.90 Unilateral inguinal hernia, without obstruction or gangrene, not specified as recurrent (principal); M06.9 Rheumatoid arthritis, unspecified; I10 Essential (primary) hypertension; K21.9 Gastro-esophageal reflux disease without esophagitis; Z85.46 Personal history of malignant neoplasm of prostate; Z90.79 Acquired absence of other genital organ(s); Z79.899 Other long term (current) drug therapy
CPT/HCPCS: 49505; 36415; 85027; 88302; 93005; J7120; C1781; J2405

== ENCOUNTER → 2024-10-24 | Outpatient (CLI) | payer MEDICARE, SELFPAY ==
[2024-10-24 19:16] LABS: ALB/GLOB Ratio 1.2 RATIO (0.9-2.4); AST(SGOT) 28 U/L (<=37); Alanine Aminotransfer ALT/SGPT 14 U/L (<=46); Albumin, Serum 3.9 g/dL (3.4-4.8); Alkaline Phosphatase 107 U/L (40-129); Anion Gap 9 (5-15); BUN 16 mg/dL (4-19); Calcium 9.6 mg/dL (7.6-11.0); Carbon Dioxide 25.5 mmol/L (22.0-29.0); Chloride 103 mmol/L (96-108); Creatinine, Serum 1.1 mg/dL (0.8-1.3); EST Glomerular Filtration Rate 65 (>60); Globulin 3.1 g/dL (2.2-4.2); Glucose 88 mg/dL (70-99); Potassium 4.4 mmol/L (3.3-5.1); Sodium Level 137 mmol/L (133-145); Total Bilirubin 0.69 mg/dL (0.00-1.30)
[2024-10-25 13:45] LABS: Cholesterol 173 mg/dL (<=200); High Density Lipoprotein 48 mg/dL; Low Density Lipoprotein Calc. 108 mg/dL; Triglycerides 83 mg/dL; Very Low Density Lipoprotein 17 mg/dL (5-40); cholesterol:hdl ratio screen 3.58
[2024-10-26 08:47] LABS: PSA,Total - Annual Screen < 0.02 ng/mL (0.02-4.00)
== END | disposition home or self-care (01) ==
LOC: BIMLAB 09:08
PROVIDERS: PCP Family Medicine; Referring Provider Family Medicine; Visit Provider Family Medicine
DX: I10 Essential (primary) hypertension (principal); C61 Malignant neoplasm of prostate; Z12.5 Encounter for screening for malignant neoplasm of prostate
CPT/HCPCS: 36415; 80053; 80061; 84153; G0103

== ENCOUNTER → 2025-08-01 | Outpatient (CLI) | payer MEDICARE, SELFPAY ==
--- NOTE | 2025-08-01 11:00 | LES_PTH ---
PATIENT: NOE MIRELES LOC: [facility] U#:[id number] AGE/SX: 84/M ROOM: RE08/01/[address]: Dr. Mike Sevilla DO : 1940 BED: DIS: 08/01/2025 SPEC #: [id number] RECD: 08/01/25 12:15 STATUS: EMANUEL GIRISH #: [id number] NATALEE: 08/01/25 11:[address]: Mike Sevilla DEPT: SURGICAL PATHOLOGY RECD BY: Krystal Latham Tissues: Skin of back, NOS Procedures: Surgery Specimen Level IV HEADER OPERATION: Skin lesion removal - punch biopsy PRE-OP DIAGNOSIS: Suspicious skin lesion on back TISSUE SUBMITTED: A- Back lesion pigmented suspicious MICROSCOPIC DIAGNOSIS A. Skin, back, punch biopsy: - Seborrheic keratosis MICROSCOPIC DESCRIPTION Slides are reviewed. GROSS DESCRIPTION A. Received in formalin labeled with the patient's name and date of . Designated as back lesion is a 0.3 x 0.3 x 0.3 cm locke skin punch. There is a 0.3 x 0.2 cm dark brown lesion comprising >50% of the epidermal surface and grossly abutting the peripheral edge. The specimen is bisected and entirely submitted in 1 cassette. CO 5CPT:[id number]
== END | disposition home or self-care (01) ==
PROVIDERS: PCP Family Medicine; Referring Provider Family Medicine; Visit Provider Family Medicine
DX: L82.1 Other seborrheic keratosis (principal)
CPT/HCPCS: 88305